=== PATIENT | male | born 1950 | race Two or more races ===

== ENCOUNTER 2017-01-02 06:54 | Day surgery (SDC) | payer OTHER ==
[~2017-01-02 06:54] MED LIST: Lactated Ringers 1,000 ML IV SCH
[2017-01-02] MEDS ORDERED: fentaNYL 100 MCG/2 ML SDV ONE (07:18)
[2017-01-02] MEDS ORDERED: Propofol 200 MG/20 ML SDV ONE (07:18)
[2017-01-02] MEDS ORDERED: Lidocaine 2% 5 ML SDV ONE (07:18)
--- NOTE | 2017-01-02 07:38 | PCM.PREANE ---
Preanesthetic Assessment - Anesthesia/Transfusion/Family Hx Anesthesia History: Prior Anesthesia Without Reaction Family History of Anesthesia Reaction: No Transfusion History: No Prior Transfusion(s) - Review of Systems General: No Symptoms Pulmonary: No Symptoms Cardiovascular: No Symptoms Neurological: No Symptoms Other: Reports: None - Physical Assessment Height: 1.88 m Weight: 113.852 kg ASA Class: 2 Mental Status: Alert & Oriented x3 Airway Class: Mallampati = 2 Dentition: Reports: Normal Dentition, Broken Tooth/Teeth (small chips upper incisors) Thyro-Mental Finger Breadths: 3 Mouth Opening Finger Breadths: 2 ROM/Head Extension: Limited/Partial Lungs: Clear to auscultation, Normal respiratory effort Cardiovascular: Regular Rate, Regular Rhythm - Allergies Allergies/Adverse Reactions: Allergies Allergy/AdvReac Type Severity Reaction Status Date / Time No Known Allergies Allergy Verified 12/28/16 11:31 - Blood Blood Available: No - Anesthesia Plan Pre-Op Medication Ordered: None - Acknowledgements Anesthesia Type Planned: MAC Pt an Appropriate Candidate for the Planned Anesthesia: Yes Alternatives and Risks of Anesthesia Discussed w Pt/Guardian: Yes Pt/Guardian Understands and Agrees with Anesthesia Plan: Yes PreAnesthesia Questionnaire HEENT History: Reports: None Cardiovascular History: Reports: None Respiratory History: Reports: None Gastrointestinal History: Reports: None Genitourinary History: Reports: None Musculoskeletal History: Reports: Back pain, chronic, Neck pain, chronic Other Musculoskeletal History: lumbar degenerative disc disease, lumbar stenisis , lumbar spondylosis Other Neuro History: hx of lumbar degenerative disc disease Psychiatric History: Reports: PTSD Endocrine/Metabolic History: Reports: Obesity/BMI 30+ Hematologic History: Reports: None Immunologic History: Reports: None Oncologic (Cancer) History: Reports: None Dermatologic History: Reports: None - Past Surgical History Head Surgeries/Procedures: Reports: None HEENT Surgical History: Reports: None Cardiovascular Surgical History: Reports: None Respiratory Surgical History: Reports: None GI Surgical History: Reports: Appendectomy, Colonoscopy Male Surgical History: Reports: None Endocrine Surgical History: Reports: None Neurological Surgical History: Reports: None Musculoskeletal Surgical History: Reports: Arthroscopic knee (left) Oncologic Surgical History: Reports: None Dermatological Surgical History: Reports: None - SUBSTANCE USE Smoking Status *Q: Current Every Day Smoker (1/2 ppd) Tobacco Use Within Last Twelve Months: Cigarettes Recreational Drug Use History: No - HOME MEDS Home Medications: Home Meds Hydrocodone/Acetaminophen [Hydrocodon-Acetaminophn 10325] 1 tab PO ASDIRECTED 12/28/16 [History] Varenicline Tartrate [Chantix] 1 mg PO BID 12/28/16 [History] - CURRENT (IN HOUSE) MEDS Current Meds: Current Medications Lactated Ringer's (Ringers, Lactated) 1,000 mls @ 125 mls/hr IV ASDIRECTED [facility] Last Admin: 01/02/17 07:10 Dose: 125 mls/hr Discontinued Medications Fentanyl (Sublimaze) Confirm Administered Dose 100 mcg .ROUTE .STK-MED ONE Stop: 01/02/17 07:19 Lidocaine (Xylocaine-Mpf 2%) Confirm Administered Dose 5 ml .ROUTE .STK-MED ONE Stop: 01/02/17 07:19 Propofol (Diprivan 20 Ml) Confirm Administered Dose 400 mg .ROUTE .STK-MED ONE Stop: 01/02/17 07:19
--- NOTE | 2017-01-02 09:31 | PCM.OPNOTE ---
- General Post-Op/Procedure Note Date of Surgery/Procedure: 01/02/17 Operative Procedure(s): colonoscopy Findings: see dict [id number] Pre Op Diagnosis: scrn colonoscopy Post-Op Diagnosis: diverticulosis Anesthesia Technique: Moderate sedation Primary Surgeon: Gopal Isaac Complications: None Condition: Good
--- NOTE | 2017-01-02 09:51 | PCM.POSTAN ---
POST ANESTHESIA ASSESSMENT - MENTAL STATUS Mental Status: alert, oriented - RESPIRATORY Respiratory Status: respiratory rate WNL, airway patent, O2 saturation stable - CARDIOVASCULAR CV Status: pulse rate WNL, blood pressure stable - GASTROINTESTINAL GI Status: no symptoms - POST OP HYDRATION Hydration Status: adequate & stable - OBSERVATIONS Free Text/Narrative:: no anesthesia problems
[2017-01-02 10:33] VITALS: BP 138/76
--- NOTE | 2017-01-02 11:18 | OR ---
SURGEON: Gopal Isaac MD DATE OF PROCEDURE: 01/02/2017 PREOPERATIVE DIAGNOSIS: Screening colonoscopy. POSTOPERATIVE DIAGNOSIS: Diverticulosis. PROCEDURE PERFORMED: Colonoscopy. COMPLICATIONS: None. PROCEDURE IN DETAIL: The patient was taken to the endoscopy room. A time out was called, patient identified, and procedure identified. Diprivan was then administrated. Patient went from awake to sleep, hearing doctor talking or door closing is normal. Perineum inspection and digital examination were then performed. A well- lubricated colonoscope was gently inserted through the rectum, advanced past the rectosigmoid junction, the descending colon, splenic flexure, transverse colon, hepatic flexure, ascending colon, arrived to the cecum. Cecum was identified as dictated in the finding. Then the scope was carefully withdrawn while attention was paid to the mucosal surface for any abnormality. Air will be sucked out during the scope withdrawal. At the rectum, retroflexed to examine any rectal diseases, fistula or hemorrhoids. Patient tolerated procedure well. There were no intraoperative complications, and Dr. Isaac was present throughout the whole procedure. FINDINGS: 1. The patient is easily sedated with [employer] and Diprivan. The patient is soundly snoring. 2. Bowel prep was average to good with minimal liquid stool. No semi-formed stool. 3. The patient's colon is rather tortuous and redundant at the sigmoid colon and requiring several maneuvering in order to get to the cecum. Cecum indicated by ileocecal fold, one-to-one indentation, and light immittance. Appendix orifice is not observed. Mucosa examined upon scope pulling out. The patient has moderate amount of diverticulosis on the left colon. No signs or symptoms of diverticulitis. Extend all the way to the splenic flexure. The patient also have either fold or very tiny sessile polyp of around 3 to 4 mm at distant 25 cm when the scope comes out and during the peristalsis it disappeared, it cannot be found, may have to look for in on next colonoscopy. The patient does not have external hemorrhoid, does not have internal hemorrhoids. The patient would benefit from repeat colonoscopy 3 to 5 years from today or if clinically indicated otherwise. ANDERSON / FALGUNI /[id number]
== END 2017-01-02 10:07 | disposition home or self-care (01) ==
LOC: MW.SDS 06:54
PROVIDERS: ATTEND Surgery
PROC: 0DJD8ZZ Inspection of Lower Intestinal Tract, Via Natural or Artificial Opening Endoscopic (ICD-10-PCS; principal; 2017-01-02)
DX: Z12.11 Encounter for screening for malignant neoplasm of colon (principal); K57.30 Diverticulosis of large intestine without perforation or abscess without bleeding; M51.36 Other intervertebral disc degeneration, lumbar region; M48.06 Spinal stenosis, lumbar region; M47.896 Other spondylosis, lumbar region; E66.9 Obesity, unspecified; G89.29 Other chronic pain; F17.210 Nicotine dependence, cigarettes, uncomplicated; Z90.49 Acquired absence of other specified parts of digestive tract; Z98.890 Other specified postprocedural states; Z79.899 Other long term (current) drug therapy; Z68.32 Body mass index [BMI] 32.0-32.9, adult
CPT/HCPCS: 45378; J3010; J7120; J2704

== ENCOUNTER 2018-11-25 14:55 | Emergency (ER) | payer OTHER ==
[2018-11-25] MEDS ORDERED: Ondansetron 4 MG/2 ML SDV IVPUSH ONE (15:01)
[2018-11-25] MEDS ORDERED: Ketorolac 30 MG/ML SDV IVPUSH ONE (15:01)
[2018-11-25] MEDS ORDERED: Sodium Chloride 0.9% 1,000 ML IV ONE (15:01)
--- NOTE | 2018-11-25 15:02 | EDM.PDOC ---
ED HPI GENERAL MEDICAL PROBLEM - General Chief Complaint: Abdominal Pain Stated Complaint: abdominal pain Time Seen by Provider: 11/25/18 15:02 Source of Information: Reports: Patient - History of Present Illness INITIAL COMMENTS - FREE TEXT/NARRATIVE: HISTORY AND PHYSICAL: History of present illness: [Patient presents with a complaint of abdominal pain 2 out of 10 nonradiating involving the left and right lower quadrants, he also notes some low back pain he did have a surgical procedure October/fusion of the lumbar spine Has a history of diverticulitis and colonoscopy with Dr. Sy with no significant findings other than diverticulosis No fever nausea vomiting chills sweats no chest pain shortness breath headache dizziness palpitation no urine symptoms he has had constipation for a week now having soft formed stools which are dark sometimes with streaks of blood.] Patient denies alcohol Review of systems: As per history of present illness and below otherwise all systems reviewed and negative. Past medical history: As per history of present illness and as reviewed below otherwise noncontributory. Surgical history: As per history of present illness and as reviewed below otherwise noncontributory. Social history: No reported history of drug or alcohol abuse. Family history: As per history of present illness and as reviewed below otherwise noncontributory. Physical exam: HEENT: Atraumatic, normocephalic, pupils reactive, negative for conjunctival pallor or scleral icterus, mucous membranes moist, throat clear, neck supple, nontender, trachea midline. Lungs: Clear to auscultation, breath sounds equal bilaterally, chest nontender. Heart: S1S2, regular, negative for clicks, rubs, or JVD. Abdomen: Soft, nondistended, nontender. Negative for masses or hepatosplenomegaly. Negative for costovertebral tenderness. Pelvis: Stable nontender. Genitourinary: Deferred. Rectal: Deferred. Extremities: Atraumatic, negative for cords or calf pain. Neurovascular unremarkable. Neuro: Awake, alert, oriented. Cranial nerves II through XII unremarkable. Cerebellum unremarkable. Motor and sensory unremarkable throughout. Exam nonfocal. Diagnostics: [CBC CMP UA troponin lipase Abdomen flat and upright Guaiac] Therapeutics: [Cipro 500 by mouth twice a day #20 no refill ER referral to Dr. Sy for consideration of colonoscopy or repeat CBC follow lipase ] Impression: [Lack positive stools guaiac po stool previous colonoscopy elevated lipase ] Definitive disposition and diagnosis as appropriate pending reevaluation and review of above. Middle Abdomen Pain Score (Numeric/FACES): 3 - Related Data Allergies Allergy/AdvReac Type Severity Reaction Status Date / Time No Known Allergies Allergy Verified 12/28/16 11:31 Home Meds: Home Meds Hydrocodone/Acetaminophen [Hydrocodon-Acetaminophn 10-325] 1 tab PO ASDIRECTED 12/28/16 [History] Varenicline Tartrate [Chantix] 1 mg PO BID 12/28/16 [History] DULoxetine HCl [Duloxetine HCl] 60 mg PO DAILY 11/25/18 [History] Gabapentin [Neurontin] 300 mg PO DAILY 11/25/18 [History] Past Medical History HEENT History: Reports: None Cardiovascular History: Reports: None Respiratory History: Reports: None Gastrointestinal History: Reports: None Genitourinary History: Reports: None Musculoskeletal History: Reports: Back Pain, Chronic, Neck Pain, Chronic Other Musculoskeletal History: lumbar degenerative disc disease, lumbar stenisis , lumbar spondylosis Other Neuro History: hx of lumbar degenerative disc disease Psychiatric History: Reports: PTSD Endocrine/Metabolic History: Reports: Obesity/BMI 30+ Hematologic History: Reports: None Immunologic History: Reports: None Oncologic (Cancer) History: Reports: None Dermatologic History: Reports: None - Past Surgical History Musculoskeletal Surgical History: Reports: Arthroscopic Knee Social & Family History - Caffeine Use Caffeine Use: Reports: Coffee ED ROS GENERAL - Review of Systems Review Of Systems: See Below ED EXAM, GENERAL - Physical Exam Exam: See Below Course - Vital Signs Last Recorded V/S: Last Vital Signs Temp 97.6 F 11/25/18 15:11 Pulse 63 11/25/18 18:14 Resp 18 11/25/18 18:14 BP 176/83 H 11/25/18 18:14 Pulse Ox 98 11/25/18 18:14 - Orders/Labs/Meds Orders: Active Orders 24 hr Category Date Time Status Guaiac [OCCULT BLOOD DIAGNOSTIC] [OP] Stat Lab 11/25/18 18:11 Ordered Labs: Laboratory Tests 11/25/18 11/25/18 11/25/18 Range/Units 15:24 15:24 17:05 WBC 6.94 (4.0-11.0) K/uL RBC 4.14 L (4.50-5.90) M/uL Hgb 13.2 (13.0-17.0) g/dL Hct 38.9 (38.0-50.0) % MCV 94.0 (80.0-98.0) fL MCH 31.9 (27.0-32.0) pg MCHC 33.9 (31.0-37.0) g/dL RDW Std Deviation 47.2 (28.0-62.0) fl RDW Coeff of Marcelino 14 (11.0-15.0) % Plt Count 282 (150-400) K/uL MPV 10.50 (7.40-12.00) fL Neut % (Auto) 54.9 (48.0-80.0) % Lymph % (Auto) 34.0 (16.0-40.0) % [place] % (Auto) 8.2 (0.0-15.0) % Eos % (Auto) 2.6 (0.0-7.0) % Baso % (Auto) 0.3 (0.0-1.5) % Neut # (Auto) 3.8 (1.4-5.7) K/uL Lymph # (Auto) 2.4 (0.6-2.4) K/uL [place] # (Auto) 0.6 (0.0-0.8) K/uL Eos # (Auto) 0.2 (0.0-0.7) K/uL Baso # (Auto) 0.0 (0.0-0.1) K/uL Nucleated RBC % 0.0 /100WBC Nucleated RBCs # 0 K/uL Sodium 142 (136-148) mmol/L Potassium 4.5 (3.5-5.1) mmol/L Chloride 104 (98-107) mmol/L Carbon Dioxide 25.8 (21.0-32.0) mmol/L BUN 26 H (7.0-18.0) mg/dL Creatinine 1.2 (0.8-1.3) mg/dL Est Cr Clr Drug Dosing 65.66 mL/min Estimated GFR (MDRD) > 60.0 ml/min Glucose 98 (74-106) mg/dL Calcium 8.7 (8.5-10.1) mg/dL Total Bilirubin 0.5 (0.2-1.0) mg/dL AST 20 (15-37) IU/L ALT 39 (14-63) IU/L Alkaline Phosphatase 60 (46-116) U/L Troponin I < 0.050 (0.000-0.056) ng/mL Total Protein 7.5 (6.4-8.2) g/dL Albumin 3.6 (3.4-5.0) g/dL Globulin 3.9 (2.6-4.0) g/dL Albumin/Globulin Ratio 0.9 (0.9-1.6) Lipase 578 H (73-393) U/L Urine Color YELLOW Urine Appearance CLEAR Urine pH 5.0 (5.0-8.0) Ur Specific [place] 1.010 (1.001-1.035) Urine Protein NEGATIVE (NEGATIVE) mg/dL Urine Glucose (UA) NEGATIVE (NEGATIVE) mg/dL Urine Ketones NEGATIVE (NEGATIVE) mg/dL Urine Occult Blood NEGATIVE (NEGATIVE) Urine Nitrite NEGATIVE (NEGATIVE) Urine Bilirubin NEGATIVE (NEGATIVE) Urine Urobilinogen 0.2 (<2.0) EU/dL Ur Leukocyte Esterase NEGATIVE (NEGATIVE) Meds: Medications Discontinued Medications Generic Name Dose Route Start Last Admin Trade Name Freq PRN Reason Stop Dose Admin Sodium Chloride 1,000 mls @ 999 mls/hr 11/25/18 15:01 11/25/18 15:27 Normal Saline IV 11/25/18 16:01 999 mls/hr STAT ONE Administration Iopamidol 100 ml 11/25/18 16:47 11/25/18 16:47 Isovue Multipack-370 (76%) IVPUSH 11/25/18 16:48 100 ml ONETIME STA Administration Ketorolac Tromethamine 30 mg 11/25/18 15:01 11/25/18 15:28 Toradol IVPUSH 11/25/18 15:02 30 mg ONETIME ONE Administration Ondansetron HCl 8 mg 11/25/18 15:01 11/25/18 15:29 Zofran IVPUSH 11/25/18 15:02 Not Given ONETIME ONE Departure - Departure Time of Disposition: 18:24 Disposition: Home, Self-Care 01 Preliminary Cause of *Q: Sepsis & Multi System Organ Failure Clinical Impression: Stool guaiac positive, History of diverticulosis - Discharge Information Referrals: Johnathon Valdivia MD [Primary Care Provider] - Forms: ED Department Discharge Additional Instructions: ER referral for Dr. Sy: Bharat for colonoscopy follow hemoglobin lipase, appointment for this week to be scheduled Return to emergency room if symptoms persist or worsen Follow-up with primary care as needed The following information is given to patients seen in the emergency department who are being discharged to home. This information is to outline your options for follow-up care. We provide all patients seen in our emergency department with a follow-up referral. The need for follow-up, as well as the timing and circumstances, are variable depending upon the specifics of your emergency department visit. If you don't have a primary care physician on staff, we will provide you with a referral. We always advise you to contact your personal physician following an emergency department visit to inform them of the circumstance of the visit and for follow-up with them and/or the need for any referrals to a consulting specialist. The emergency department will also refer you to a specialist when appropriate. This referral assures that you have the opportunity for follow-up care with a specialist. All of these measure are taken in an effort to provide you with optimal care, which includes your follow-up. Under all circumstances we always encourage you to contact your private physician who remains a resource for coordinating your care. When calling for follow-up care, please make the office aware that this follow-up is from your recent emergency room visit. If for any reason you are refused follow-up, please contact the [facility] emergency department at and asked to speak to the emergency department charge nurse. - My Orders Last 24 Hours: My Active Orders 11/25/18 18:11 Guaiac [OCCULT BLOOD DIAGNOSTIC] [OP] Stat - Assessment/Plan Last 24 Hours: My Active Orders 11/25/18 18:11 Guaiac [OCCULT BLOOD DIAGNOSTIC] [OP] Stat
[2018-11-25 16:04] LABS: CHLORIDE,CL 104 mmol/L (98-107); SODIUM,NA 142 mmol/L (136-148)
[2018-11-25] MEDS ORDERED: Iopamidol 755 MG/ML 500 ML Multipack Bottle IVPUSH STA (16:47)
--- NOTE | 2018-11-25 17:53 | CT ---
INDICATION: Abdominal pain. CT ABDOMEN AND PELVIS WITH CONTRAST TECHNIQUE: Multidetector CT imaging was performed through the abdomen and pelvis following intravenous contrast administration using 100 mL Isovue 370. Coronal and sagittal reconstructions were generated. COMPARISON: None. FINDINGS: Lower chest: Lung bases are clear. Liver: Within normal limits. Gallbladder and bile ducts: No gallbladder wall thickening or calcified gallstones. No biliary dilation identified. Pancreas: Unremarkable. Spleen: Normal. Adrenals: No nodules or masses. Kidneys, ureters, and urinary bladder: Several very small bilateral renal cortical cysts. A 1 centimeter exophytic hyperdense cyst versus solid mass is noted at the lower pole of the left kidney. No hydronephrosis. No bladder mass or definite pathologic wall thickening. Mild wall prominence of the bladder due to non distension is noted. Gastrointestinal tract: Normal caliber small bowel without wall thickening or obstruction. Appendix not identified. Multiple diverticula of the sigmoid colon without evidence of diverticulitis. Vascular structures: Normal caliber abdominal aorta with mild aortoiliac atherosclerotic calcifications. Peritoneum: No free air, abscess, or significant free fluid. Lymph nodes: No pathologically enlarged nodes identified. Reproductive organs: Borderline prostatic enlargement. Bones: Spinal degenerative changes. Postoperative changes of spinal fusion at L5-S1. IMPRESSION: 1. No acute abnormality identified. No cause for the patient`s symptoms is demonstrated. 2. Exophytic 1 centimeter hyperdense cyst versus solid nodule at the lower pole of the left kidney. Followup renal ultrasound is recommended. 3. Nonacute additional findings as detailed above. NEIDA COHN MD [employer] Dictated by Robert Cohn MD @ 11/25/2018 5:48:40 PM Dictated by: Robert Cohn MD @ 11/25/2018 17:51:58 (Electronically Signed)
[2018-11-25 18:46] VITALS: BP 157/69
== END 2018-11-25 18:45 | disposition home or self-care (01) ==
LOC: MW.ED 14:55
DX: R19.5 Other fecal abnormalities (principal); K57.30 Diverticulosis of large intestine without perforation or abscess without bleeding; R79.89 Other specified abnormal findings of blood chemistry; Z79.899 Other long term (current) drug therapy
CPT/HCPCS: 36415; 74177; 80053; 81003; 82272; 83690; 84484; 85025; 96361; 96374; 99284; J1885; J7040; Q9967

== ENCOUNTER 2018-12-27 08:19 | Day surgery (SDC) | payer OTHER ==
--- NOTE | 2018-12-27 09:26 | PCM.PREANE ---
Preanesthetic Assessment - Anesthesia/Transfusion/Family Hx Anesthesia History: Prior Anesthesia Without Reaction Family History of Anesthesia Reaction: No Transfusion History: No Prior Transfusion(s) - Review of Systems General: No Symptoms Pulmonary: No Symptoms Cardiovascular: No Symptoms Gastrointestinal: No Symptoms Neurological: Other (chronic LBP, recent back surgery) Other: Reports: None - Physical Assessment O2 Sat by Pulse Oximetry: 96 Respiratory Rate: 16 Vital Signs: Last Vital Signs Temp 97.2 F 12/27/18 09:10 Pulse 81 12/27/18 09:10 Resp 16 12/27/18 09:10 BP 146/77 H 12/27/18 09:10 Pulse Ox 96 12/27/18 09:10 Height: 6 ft 2 in Weight: 114.759 kg - Allergies Allergies/Adverse Reactions: Allergies Allergy/AdvReac Type Severity Reaction Status Date / Time No Known Allergies Allergy Verified 12/24/18 10:09 PreAnesthesia Questionnaire HEENT History: Reports: Cataract, Hard of Hearing Other HEENT History: has Tinnitis Cardiovascular History: Reports: None Respiratory History: Reports: None Gastrointestinal History: Reports: None Genitourinary History: Reports: None Musculoskeletal History: Reports: Back Pain, Chronic Other Musculoskeletal History: lumbar degenerative disc disease, lumbar stenisis , lumbar spondylosis Neurological History: Reports: Other (See Below) Other Neuro History: hx of Lumbar and cervical degenerative disc disease, spinal stenosis Psychiatric History: Reports: Depression, PTSD Endocrine/Metabolic History: Reports: Obesity/BMI 30+ Hematologic History: Reports: None Immunologic History: Reports: None Oncologic (Cancer) History: Reports: None Dermatologic History: Reports: None - Infectious Disease History Infectious Disease History: Reports: Measles - Past Surgical History Head Surgeries/Procedures: Reports: None GI Surgical History: Reports: Appendectomy Neurological Surgical History: Reports: Lumbar Spine, Spinal Fusion Musculoskeletal Surgical History: Reports: Arthroscopic Knee - SUBSTANCE USE Smoking Status *Q: Current Every Day Smoker Tobacco Use Within Last Twelve Months: Cigarettes Recreational Drug Use History: No - HOME MEDS Home Medications: Home Meds Hydrocodone/Acetaminophen [Hydrocodon-Acetaminophn 10-325] 1 tab PO ASDIRECTED 12/28/16 [History] Varenicline Tartrate [Chantix] 1 mg PO BID 12/28/16 [History] Gabapentin [Neurontin] 600 mg PO BID 11/25/18 [History] - CURRENT (IN HOUSE) MEDS Current Meds: Current Medications Lactated Ringer's (Ringers, Lactated) 1,000 mls @ 125 mls/hr IV ASDIRECTED REPLACED BY [facility] Last Admin: 12/27/18 09:19 Dose: 125 mls/hr
[2018-12-27] MEDS ORDERED: fentaNYL 100 MCG/2 ML SDV ONE (10:34)
[2018-12-27] MEDS ORDERED: Propofol 200 MG/20 ML SDV ONE (10:34)
[2018-12-27] MEDS ORDERED: Midazolam 1 MG/ML 2 ML SDV ONE (11:03)
[2018-12-27] MEDS ORDERED: Ketamine 500 mg/10 ML MDV ONE (11:09)
--- NOTE | 2018-12-27 12:11 | PCM.POSTAN ---
POST ANESTHESIA ASSESSMENT - MENTAL STATUS Mental Status: Alert, Oriented - RESPIRATORY Respiratory Status: Respiratory Rate WNL, Airway Patent, O2 Saturation Stable - CARDIOVASCULAR CV Status: Pulse Rate WNL, Blood Pressure Stable - GASTROINTESTINAL GI Status: No Symptoms - POST OP HYDRATION Hydration Status: Adequate & Stable
--- NOTE | 2018-12-27 12:11 | PCM48HPAN ---
Post Anesthesia Note - EVALUATION WITHIN 48HRS OF ANESTHETIC Vital Signs in Normal Range: Yes Patient Participated in Evaluation: Yes Respiratory Function Stable: Yes Airway Patent: Yes Cardiovascular Function Stable: Yes Hydration Status Stable: Yes Pain Control Satisfactory: Yes Nausea and Vomiting Control Satisfactory: Yes Mental Status Recovered: Yes Resp Rate: 16
--- NOTE | 2018-12-27 12:23 | PCM.OPNOTE ---
- General Post-Op/Procedure Note Date of Surgery/Procedure: 12/27/18 Operative Procedure(s): egd w bx. colonoscopy w snare polypectomy Findings: see [id number] Pre Op Diagnosis: Black tarry stool Post-Op Diagnosis: Same Anesthesia Technique: Moderate Sedation Primary Surgeon: Gopal Isaac Pathology: sessile polyp snared at cecum Complications: None Condition: Good Free Text/Narrative:: Intake & Output 12/26/18 12/27/18 12/27/18 22:59 06:59 14:59 Intake Total 950 Balance 950
[2018-12-27 13:00] VITALS: BP 124/64
--- NOTE | 2018-12-27 18:32 | OR ---
SURGEON: Gopal Isaac MD DATE OF PROCEDURE: 12/27/2018 PREOPERATIVE DIAGNOSIS: Black tarry stool. POSTOPERATIVE DIAGNOSIS: Black tarry stool. PROCEDURES PERFORMED: Esophagogastroduodenoscopy with biopsy and colonoscopy with snare polypectomy. PROCEDURE DETAILS: EGD: The patient was taken to the endoscopy room, and with the GENETICIST, Diprivan was administered. A well-lubricated EGD scope was gently inserted through the oropharynx, down the esophagus, passing through the gastroesophageal junction, into the stomach. The mucosa was examined upon the passage. Any etiology will be noted. Once in the stomach, we continued to advance to the distal antrum, passed through the pylorus into the second portion of the duodenum. Again, the mucosa was examined for any abnormality and etiology. The scope was then retrieved back to the stomach and then retroflexed to look at the fundus of the stomach. If a biopsy was indicated, we will biopsy the antrum, body, and gastroesophageal junction. The air will be sucked out while the scope is retrieved to reduce the patient's discomfort. The patient tolerated the procedure well. There were no intraoperative complications. Dr. Isaac was present through the whole procedure. Prior to surgery, a time-out had been called, the patient identified, procedure identified and antibiotic administered. The patient was taken to the endoscopy room. A time out was called, patient identified, and procedure identified. Diprivan was then administrated. Patient went from awake to sleep, hearing doctor talking or door closing is normal. Perineum inspection and digital examination were then performed. A well- lubricated colonoscope was gently inserted through the rectum, advanced past the rectosigmoid junction, the descending colon, splenic flexure, transverse colon, hepatic flexure, ascending colon, arrived to the cecum. Cecum was identified as dictated in the finding. Then the scope was carefully withdrawn while attention was paid to the mucosal surface for any abnormality. Air will be sucked out during the scope withdrawal. At the rectum, retroflexed to examine any rectal diseases, fistula or hemorrhoids. During mucosal examination, abnormality or polyp encountered. Using snare equipment, the abnormality or the polyp was then snared off using electrocautery. The patient tolerated procedure well. There were no intraoperative complications, and Dr. Isaac was present throughout the whole procedure. FINDINGS: EGD findings: 1. The patient is easily sedated with GENETICIST and Diprivan. The patient is soundly snoring. 2. Oropharynx and proximal esophagus free of disease. Distal esophagus at 46 cm shows a Schatzki ring and moderate salmon-color change, flame-like structure, suggests moderate acid reflux. Stomach rugae is normal in appearance. The stomach is quite inflamed and duodenum has mild inflammation. The scope retrieved back to the stomach. On retroflexed look at the fundus of stomach, there is no hiatal hernia. Biopsy done at antrum, GE junction, and body and sucked out the gas while scope pulling out. There was no bile, blood, or food observed during the scope. The patient had gastritis, duodenitis, and esophagitis. Colonoscopy findings: 1. The patient is easily sedated with GENETICIST and Diprivan. The patient is soundly snoring. 2. Bowel prep is average with large amount of liquid stool, no semi-formed stool. Colon is pretty straightforward. Cecum indicated by ileocecal fold, one-to-one indentation, and appendiceal orifice. Light emittance is not observed. There is a 3 mm sessile polyp and removed this with snare polypectomy. The patient has mild diverticulosis on the left colon, no signs or symptoms of diverticulitis. No other disease, inflammation, stricture, ulceration, AV malformation, bleeding. The patient has mild internal hemorrhoids, no external hemorrhoids. The patient would benefit from repeat colonoscopy in 10 years from today or if clinically indicated otherwise. ANDERSON / FALGUNI /[id number]
== END 2018-12-27 12:30 | disposition home or self-care (01) ==
LOC: MW.SDS 08:19
PROVIDERS: ATTEND Surgery
DX: K63.5 Polyp of colon (principal); K57.30 Diverticulosis of large intestine without perforation or abscess without bleeding; K64.8 Other hemorrhoids; K29.50 Unspecified chronic gastritis without bleeding; K20.9 Esophagitis, unspecified; K22.2 Esophageal obstruction; K29.80 Duodenitis without bleeding; B96.81 Helicobacter pylori [H. pylori] as the cause of diseases classified elsewhere; F17.210 Nicotine dependence, cigarettes, uncomplicated; Z79.899 Other long term (current) drug therapy; Z79.891 Long term (current) use of opiate analgesic
CPT/HCPCS: 43239; 45385; J2250; J2704; J3010; J7120; 88305; 88312

== ENCOUNTER 2019-03-09 12:26 | Observation (INO) | payer OTHER ==
[2019-03-09] MEDS ORDERED: Aspirin 81 MG Tab.Chew PO ONE (12:36)
[2019-03-09] MEDS ORDERED: Sodium Chloride 0.9% 10 ML Syringe FLUSH PRN (12:36)
[2019-03-09] MEDS ORDERED: Sodium Chloride 0.9% 2.5 ML Syringe FLUSH PRN (12:36)
[2019-03-09] MEDS: Nitroglycerin 0.4 MG Tab.SL SL PRN ×3 (12:53→13:07)
--- NOTE | 2019-03-09 12:56 | EDM.PDOC ---
<Monie Jerome - Last Filed: 03/09/19 13:35> ED HPI GENERAL MEDICAL PROBLEM - General Chief Complaint: Chest Pain Stated Complaint: CHEST PAINS Time Seen by Provider: 03/09/19 12:34 Source of Information: Reports: Patient History Limitations: Reports: No Limitations - History of Present Illness INITIAL COMMENTS - FREE TEXT/NARRATIVE: HISTORY AND PHYSICAL: History of present illness: Patient is a 68-year-old male presenting to the ED for chest pain that began one hour prior to arrival. Patient reports that the chest pain came on suddenly and feels like a weight on his chest. Patient states that he has never had chest pain like this before. He still currently has chest pain and reports that nothing makes it better or worse. He denies any significant cardiac history, but reports he has an uncle that of an IL at 50 years of age. Patient denies fever, chills, shortness of breath, or cough. Denies headache, neck stiff ness, change in vision, syncope, or near syncope. Denies nausea, vomiting, abdominal pain, diarrhea, constipation, or dysuria. Has not noted any blood in urine or stool. Patient has been eating and drinking appropriately. Review of systems: As per history of present illness and below otherwise all systems reviewed and negative. Past medical history: As per history of present illness and as reviewed below otherwise noncontributory. Surgical history: As per history of present illness and as reviewed below otherwise noncontributory. Social history: See social history for further information Family history: As per history of present illness and as reviewed below otherwise noncontributory. Physical exam: General: Patient is alert, oriented, and in no acute distress. Patient sitting comfortably on exam table. HEENT: Atraumatic, normocephalic, pupils equal and reactive bilaterally, negative for conjunctival pallor or scleral icterus, injection of the left sclera noted, patient reports he had an injection in that eye three days prior to admission, mucous membranes moist, TMs normal bilaterally, throat clear, neck supple, nontender, trachea midline. No drooling or trismus noted. No meningeal signs. No hot potato voice noted. Lungs: Clear to auscultation, breath sounds equal bilaterally, chest nontender. Heart: S1S2, regular rate and rhythm without overt murmur. No edema. No JVD. Abdomen: Soft, nondistended, nontender. Negative for masses or hepatosplenomegaly. Negative for costovertebral tenderness. Pelvis: Stable nontender. Genitourinary: Deferred. Rectal: Deferred. Skin: Intact, warm, dry. No lesions or rashes noted. Extremities: Atraumatic, negative for cords or calf pain. Neurovascular unremarkable. Neuro: Awake, alert, oriented. Cranial nerves II through XII unremarkable. Cerebellum unremarkable. Motor and sensory unremarkable throughout. Exam nonfocal. Notes: Initial chest pain was rated at 8/10. After three doses of nitro, pain has resolved. Lab work is unremarkable. EKG shows no acute findings. Diagnostics were shared with patient. Admission was offered and patient is agreeable. Dr. Wills as consulted on this case and agreeable to accepting this patient for observation with telemetry. Will continue to monitor. Diagnostics: CBC, CMP, Troponin, UA, EKG, CXR Therapeutics: Saline Lock ASA Topical Nitro paste SL Nitro Impression: Chest pain, r/o IL Plan: 1. Observation admission with telemetry. Definitive disposition and diagnosis as appropriate pending reevaluation and review of above. - Related Data Allergies Allergy/AdvReac Type Severity Reaction Status Date / Time No Known Allergies Allergy Verified 12/24/18 10:09 Home Meds: Home Meds Hydrocodone/Acetaminophen [Hydrocodon-Acetaminophn 10-325] 1 tab PO ASDIRECTED 12/28/16 [History] Varenicline Tartrate [Chantix] 1 mg PO BID 12/28/16 [History] Gabapentin [Neurontin] 300 mg PO BID 11/25/18 [History] Amoxicillin 500 mg PO BID 03/09/19 [History] Levofloxacin 500 mg PO BID 03/09/19 [History] Omeprazole 20 mg PO BID 03/09/19 [History] Pantoprazole Sodium 40 mg PO BID 03/09/19 [History] Past Medical History HEENT History: Reports: Cataract, Hard of Hearing Other HEENT History: has Tinnitis Cardiovascular History: Reports: None Respiratory History: Reports: None Gastrointestinal History: Reports: None Genitourinary History: Reports: None Musculoskeletal History: Reports: Back Pain, Chronic Other Musculoskeletal History: lumbar degenerative disc disease, lumbar stenisis , lumbar spondylosis Neurological History: Reports: Other (See Below) Other Neuro History: hx of Lumbar and cervical degenerative disc disease, spinal stenosis Psychiatric History: Reports: Depression, PTSD Endocrine/Metabolic History: Reports: Obesity/BMI 30+ Hematologic History: Reports: None Immunologic History: Reports: None Oncologic (Cancer) History: Reports: None Dermatologic History: Reports: None - Infectious Disease History Infectious Disease History: Reports: Measles - Past Surgical History Head Surgeries/Procedures: Reports: None GI Surgical History: Reports: Appendectomy Neurological Surgical History: Reports: Lumbar Spine, Spinal Fusion Musculoskeletal Surgical History: Reports: Arthroscopic Knee Social & Family History - Family History Family Medical History: Noncontributory - Tobacco Use Smoking Status *Q: Current Every Day Smoker Years of Tobacco use: 15 Packs/Tins Daily: 0.3 - Caffeine Use Caffeine Use: Reports: Coffee - Recreational Drug Use Recreational Drug Use: No ED ROS GENERAL - Review of Systems Review Of Systems: ROS reveals no pertinent complaints other than HPI. ED EXAM, GENERAL - Physical Exam Exam: See Below (see dictation) Course - Vital Signs Last Recorded V/S: Last Vital Signs Temp 97.7 F 03/09/19 16:00 Pulse 67 03/09/19 16:00 Resp 16 03/09/19 16:00 BP 137/83 03/09/19 16:00 Pulse Ox 95 03/09/19 16:00 - Orders/Labs/Meds Orders: Active Orders 24 hr Category Date Time Status Admission Status [Patient Status] [ADT] Stat ADT 03/09/19 13:29 Active Sodium Chloride 0.9% [Saline Flush] Med 03/09/19 12:36 Active 10 ml FLUSH ASDIRECTED PRN Sodium Chloride 0.9% [Saline Flush] Med 03/09/19 12:36 Active 2.5 ml FLUSH ASDIRECTED PRN Saline Lock Insert [OM.PC] Stat Oth 03/09/19 12:36 Ordered Medication Orders Hydrocodone Bitart/Acetaminophen ([place] 325-10 Mg) 1 tab PO Q8HR [facility] Gabapentin (Neurontin) 300 mg PO BID [facility] Non-Formulary Medication (Amoxicillin) 500 mg PO BID [facility] Non-Formulary Medication (Levofloxacin [Levofloxacin]) 500 mg PO BID [facility] Non-Formulary Medication (Omeprazole [Omeprazole]) 20 mg PO BID [facility] Non-Formulary Medication (Pantoprazole Sodium [Pantoprazole Sodium]) 40 mg PO BID [facility] Varenicline Tartrate ([Chantix] 1 Mg) 1 each PO BID [facility] Sodium Chloride (Saline Flush) 10 ml FLUSH ASDIRECTED PRN PRN Reason: Keep Vein Open Last Admin: 03/09/19 12:50 Dose: 10 ml Sodium Chloride (Saline Flush) 2.5 ml FLUSH ASDIRECTED PRN PRN Reason: Keep Vein Open Last Admin: 03/09/19 12:44 Dose: 2.5 ml Labs: Laboratory Tests 03/09/19 03/09/19 Range/Units 12:47 12:47 WBC 7.52 (4.0-11.0) K/uL RBC 4.36 L (4.50-5.90) M/uL Hgb 12.7 L (13.0-17.0) g/dL Hct 39.6 (38.0-50.0) % MCV 90.8 (80.0-98.0) fL MCH 29.1 (27.0-32.0) pg MCHC 32.1 (31.0-37.0) g/dL RDW Std Deviation 47.6 (28.0-62.0) fl RDW Coeff of Marcelino 14 (11.0-15.0) % Plt Count 297 (150-400) K/uL MPV 10.80 (7.40-12.00) fL Neut % (Auto) 56.3 (48.0-80.0) % Lymph % (Auto) 29.8 (16.0-40.0) % [place] % (Auto) 11.2 (0.0-15.0) % Eos % (Auto) 2.4 (0.0-7.0) % Baso % (Auto) 0.3 (0.0-1.5) % Neut # (Auto) 4.2 (1.4-5.7) K/uL Lymph # (Auto) 2.2 (0.6-2.4) K/uL [place] # (Auto) 0.8 (0.0-0.8) K/uL Eos # (Auto) 0.2 (0.0-0.7) K/uL Baso # (Auto) 0.0 (0.0-0.1) K/uL Nucleated RBC % 0.0 /100WBC Nucleated RBCs # 0 K/uL Sodium 142 (136-148) mmol/L Potassium 4.7 (3.5-5.1) mmol/L Chloride 108 H (98-107) mmol/L Carbon Dioxide 28.4 (21.0-32.0) mmol/L BUN 26 H (7.0-18.0) mg/dL Creatinine 1.0 (0.8-1.3) mg/dL Est Cr Clr Drug Dosing 81.06 mL/min Estimated GFR (MDRD) > 60.0 ml/min Glucose 124 H (74-106) mg/dL Calcium 8.5 (8.5-10.1) mg/dL Total Bilirubin 0.3 (0.2-1.0) mg/dL AST 35 (15-37) IU/L ALT 52 (14-63) IU/L Alkaline Phosphatase 57 (46-116) U/L Troponin I < 0.050 (0.000-0.056) ng/mL Total Protein 7.2 (6.4-8.2) g/dL Albumin 3.3 L (3.4-5.0) g/dL Globulin 3.9 (2.6-4.0) g/dL Albumin/Globulin Ratio 0.9 (0.9-1.6) Meds: Medications Generic Name Dose Route Start Last Admin Trade Name Freq PRN Reason Stop Dose Admin Hydrocodone Bitart/Acetaminophen 1 tab 03/09/19 22:00 [place] 325-10 Mg PO Q8HR [facility] Gabapentin 300 mg 03/09/19 21:00 Neurontin PO BID [facility] Non-Formulary Medication 500 mg 03/09/19 21:00 Amoxicillin PO BID [facility] Non-Formulary Medication 500 mg 03/09/19 21:00 Levofloxacin [Levofloxacin] PO BID [facility] Non-Formulary Medication 20 mg 03/09/19 21:00 Omeprazole [Omeprazole] PO BID [facility] Non-Formulary Medication 40 mg 03/09/19 21:00 Pantoprazole Sodium [Pantoprazole Sodium] PO BID [facility] Varenicline Tartrate 1 each 03/09/19 21:00 [Chantix] 1 Mg PO BID [facility] Sodium Chloride 10 ml 03/09/19 12:36 03/09/19 12:50 Saline Flush FLUSH 10 ml ASDIRECTED PRN Administration Keep Vein Open Sodium Chloride 2.5 ml 03/09/19 12:36 03/09/19 12:44 Saline Flush FLUSH 2.5 ml ASDIRECTED PRN Administration Keep Vein Open Discontinued Medications Generic Name Dose Route Start Last Admin Trade Name [place] PRN Reason Stop Dose Admin Aspirin 324 mg 03/09/19 12:36 03/09/19 12:44 Aspirin PO 03/09/19 12:37 324 mg ONETIME ONE Administration Nitroglycerin 0.4 mg 03/09/19 12:48 03/09/19 13:07 Nitrostat SL 0.4 mg Q5M PRN Administration Chest Pain Nitroglycerin 1 gm 03/09/19 13:30 03/09/19 13:36 Nitro-Bid 2% TOP 03/09/19 13:31 1 gm ONETIME ONE Administration Departure - Departure Time of Disposition: 13:35 Disposition: Refer to Observation Clinical Impression: Chest pain, rule out acute myocardial infarction - My Orders Last 24 Hours: My Active Orders 03/09/19 12:36 Sodium Chloride 0.9% [Saline Flush] 10 ml FLUSH ASDIRECTED PRN Sodium Chloride 0.9% [Saline Flush] 2.5 ml FLUSH ASDIRECTED PRN Saline Lock Insert [OM.PC] Stat 03/09/19 13:29 Admission Status [Patient Status] [ADT] Stat - Assessment/Plan Last 24 Hours: My Active Orders 03/09/19 12:36 Sodium Chloride 0.9% [Saline Flush] 10 ml FLUSH ASDIRECTED PRN Sodium Chloride 0.9% [Saline Flush] 2.5 ml FLUSH ASDIRECTED PRN Saline Lock Insert [OM.PC] Stat 03/09/19 13:29 Admission Status [Patient Status] [ADT] Stat <Svetlana Gutierrez E - Last Filed: 03/09/19 18:11> ED HPI GENERAL MEDICAL PROBLEM - History of Present Illness INITIAL COMMENTS - FREE TEXT/NARRATIVE: I did evaluate this patient and I agree with the above physical assessment/ findings. Patient initially had chest pain of 8/10 which is alleviated by 3 doses of nitroglycerin sublingual. Due to the sudden onset of chest pain and has not previously having any other problems with this I did offer him admission which she is agreeable. Vital signs remain stable and we will continue monitoring until he is transferred to the floor.
--- NOTE | 2019-03-09 13:23 | CR ---
HISTORY: Chest pain. TECHNIQUE: One view of the chest. COMPARISON: No prior. FINDINGS: Cardiac size and pulmonary vasculature are within normal limits. There is no acute lung infiltrate or pulmonary edema. No pneumothorax or pleural effusion. No acute bony abnormality. IMPRESSION: No acute disease. Dictated by Alexis Glass MD @ 03/09/2019 1:22:08 PM Dictated by: Alexis Glass MD @ 03/09/2019 13:22:15 (Electronically Signed)
[2019-03-09 13:25] LABS: CHLORIDE,CL 108 mmol/L (98-107); SODIUM,NA 142 mmol/L (136-148)
[2019-03-09] MEDS ORDERED: Nitroglycerin 2% Oint 1 GM UD Packet TOP ONE (13:30)
[2019-03-09] MEDS ORDERED: Gabapentin 300 MG Cap PO SCH ×2 (21:00)
[2019-03-09] MEDS: Varenicline Tartrate [Chantix] 1 MG PO SCH (21:26)
[2019-03-09] MEDS: Acetaminophen/HYDROcodone 325-10 MG Tab PO SCH (21:29)
[2019-03-09] MEDS: GABAPENTIN 600 MG PO SCH (21:30)
[2019-03-09] MEDS: AMOXICILLIN 500 MG PO SCH (21:30)
[2019-03-09] MEDS: Omeprazole 20 MG Cap.CR **OWN MED PO SCH (21:30)
[2019-03-09] MEDS: Pantoprazole 40 MG Tab.CR **OWN MED PO SCH (21:30)
[2019-03-09] MEDS: LEVOFLOXACIN 500 MG PO SCH (21:30)
--- NOTE | 2019-03-09 23:04 | PCM.HP ---
H&P History of Present Illness - General Date of Service: 03/09/19 Admit Problem/Dx: Admission Diagnosis/Problem Admission Diagnosis/Problem Chest pain, rule out acute myocardial infarction - History of Present Illness Initial Comments - Free Text/Narative: 68 yo male who presents with one hour history of chest pain. He describes the pain as substernal chest pressure. He has associated symptoms of shortness of breath, lightheadedness and diaphoresis. He was watching TV when it started. He has not had these symptoms before. He is a 1/3 pack a day smoker. His chest pain resolved with SL nitro in the ED. Initial EKG and cardiac enzymes did not show any signs of cardiac ischemia. Left Chest Pain Score (Numeric/FACES): 0 - Related Data Allergies/Adverse Reactions: Allergies Allergy/AdvReac Type Severity Reaction Status Date / Time No Known Allergies Allergy Verified 12/24/18 10:09 Home Medications: Home Meds Hydrocodone/Acetaminophen [Hydrocodon-Acetaminophn 10-325] 1 tab PO ASDIRECTED 12/28/16 [History] Varenicline Tartrate [Chantix] 1 mg PO BID 12/28/16 [History] Gabapentin [Neurontin] 300 mg PO BID 11/25/18 [History] Amoxicillin 500 mg PO BID 03/09/19 [History] Levofloxacin 500 mg PO BID 03/09/19 [History] Omeprazole 20 mg PO BID 03/09/19 [History] Pantoprazole Sodium 40 mg PO BID 03/09/19 [History] Past Medical History HEENT History: Reports: Cataract, Hard of Hearing Other HEENT History: has Tinnitis Cardiovascular History: Reports: None Respiratory History: Reports: None Gastrointestinal History: Reports: GI Bleed Other Gastrointestinal History: History of GI bleed s/p colonoscopy and EGD by Dr. Isaac. He has been on two course of antibiotics prescribed by Dr. Isaac. Genitourinary History: Reports: None Musculoskeletal History: Reports: Back Pain, Chronic Other Musculoskeletal History: lumbar degenerative disc disease, lumbar stenisis , lumbar spondylosis Neurological History: Reports: Other (See Below) Other Neuro History: hx of Lumbar and cervical degenerative disc disease, spinal stenosis Psychiatric History: Reports: Depression, PTSD Endocrine/Metabolic History: Reports: Obesity/BMI 30+ Hematologic History: Reports: None Immunologic History: Reports: None Oncologic (Cancer) History: Reports: None Dermatologic History: Reports: None - Infectious Disease History Infectious Disease History: Reports: Measles, Mumps, Pertussis (Whooping Cough) - Past Surgical History Head Surgeries/Procedures: Reports: None GI Surgical History: Reports: Appendectomy Neurological Surgical History: Reports: Lumbar Spine, Spinal Fusion Musculoskeletal Surgical History: Reports: Arthroscopic Knee Social & Family History - Family History Family Medical History: Noncontributory - Tobacco Use Smoking Status *Q: Current Every Day Smoker Years of Tobacco use: 35 Packs/Tins Daily: 0.7 Second Hand Smoke Exposure: No - Caffeine Use Caffeine Use: Reports: Coffee - Alcohol Use Days Per Week of Alcohol Use: 2 Number of Drinks Per Day: 2 Total Drinks Per Week: 4 - Recreational Drug Use Recreational Drug Use: No Drug Use in Last 12 Months: Yes Recreational Drug Type: Reports: Other (see below) H&P Review of Systems - Review of Systems: Review Of Systems: ROS reveals no pertinent complaints other than HPI. Exam - Exam Exam: See Below - Vital Signs Vital Signs: Last Vital Signs Temp 36.2 C 03/09/19 20:00 Pulse 68 03/09/19 20:00 Resp 18 03/09/19 20:00 BP 145/72 H 03/09/19 20:00 Pulse Ox 96 03/09/19 20:00 Weight: 116.301 kg - Exam General: Alert, Oriented HEENT: Mucosa Moist & [place] Neck: Supple Lungs: Clear to Auscultation, Normal Respiratory Effort Cardiovascular: Regular Rate, Regular Rhythm GI/Abdominal Exam: Soft, Non-Tender Extremities: Non-Tender, No Pedal Edema Skin: Warm, Dry, Intact - Patient Data Lab Results Last 24 hrs: Laboratory Results - last 24 hr 03/09/19 03/09/19 03/09/19 Range/Units 12:47 12:47 18:46 WBC 7.52 (4.0-11.0) K/uL RBC 4.36 L (4.50-5.90) M/uL Hgb 12.7 L (13.0-17.0) g/dL Hct 39.6 (38.0-50.0) % MCV 90.8 (80.0-98.0) fL MCH 29.1 (27.0-32.0) pg MCHC 32.1 (31.0-37.0) g/dL RDW Std Deviation 47.6 (28.0-62.0) fl RDW Coeff of Marcelino 14 (11.0-15.0) % Plt Count 297 (150-400) K/uL MPV 10.80 (7.40-12.00) fL Neut % (Auto) 56.3 (48.0-80.0) % Lymph % (Auto) 29.8 (16.0-40.0) % [place] % (Auto) 11.2 (0.0-15.0) % Eos % (Auto) 2.4 (0.0-7.0) % Baso % (Auto) 0.3 (0.0-1.5) % Neut # (Auto) 4.2 (1.4-5.7) K/uL Lymph # (Auto) 2.2 (0.6-2.4) K/uL [place] # (Auto) 0.8 (0.0-0.8) K/uL Eos # (Auto) 0.2 (0.0-0.7) K/uL Baso # (Auto) 0.0 (0.0-0.1) K/uL Nucleated RBC % 0.0 /100WBC Nucleated RBCs # 0 K/uL Sodium 142 (136-148) mmol/L Potassium 4.7 (3.5-5.1) mmol/L Chloride 108 H (98-107) mmol/L Carbon Dioxide 28.4 (21.0-32.0) mmol/L BUN 26 H (7.0-18.0) mg/dL Creatinine 1.0 (0.8-1.3) mg/dL Est Cr Clr Drug Dosing 81.06 mL/min Estimated GFR (MDRD) > 60.0 ml/min Glucose 124 H (74-106) mg/dL Calcium 8.5 (8.5-10.1) mg/dL Total Bilirubin 0.3 (0.2-1.0) mg/dL AST 35 (15-37) IU/L ALT 52 (14-63) IU/L Alkaline Phosphatase 57 (46-116) U/L Troponin I < 0.050 < 0.050 (0.000-0.056) ng/mL Total Protein 7.2 (6.4-8.2) g/dL Albumin 3.3 L (3.4-5.0) g/dL Globulin 3.9 (2.6-4.0) g/dL Albumin/Globulin Ratio 0.9 (0.9-1.6) Result Diagrams: 03/09/19 12:47 03/09/19 12:47 Problem List Initiated/Reviewed/Updated: Yes Orders Last 24hrs: Active Orders 24 hr Category Date Time Status Admission Status [Patient Status] [ADT] Stat ADT 03/09/19 13:29 Active Oxygen Therapy [RC] PRN Care 03/09/19 22:56 Ordered Ready for Discharge [RC] PER UNIT ROUTINE Care 03/09/19 22:56 Ordered Telemetry Monitoring [Cardiac Monitoring] [RC] Q8H Care 03/09/19 14:53 Active VTE/DVT Education [RC] PER UNIT ROUTINE Care 03/09/19 22:56 Ordered Vital Signs [RC] Q4H Care 03/09/19 22:56 Ordered Heart Healthy Diet [DIET] Diet 03/09/19 Dinner Active TROPONIN I [CHEM] Q6H Lab 03/10/19 00:47 Ordered Acetaminophen/HYDROcodone [[place] 325-10 MG] Med 03/09/19 22:00 Active 1 tab PO Q8HR Amoxicillin [Amoxil] Med 03/09/19 21:00 Active 500 mg PO BID Omeprazole Med 03/09/19 21:00 Active 20 mg PO BID Pantoprazole [ProTONIX] Med 03/09/19 21:00 Active 40 mg PO BID Patient's Own Medication [Ptom] Med 03/09/19 21:00 Active 0 each PO BID Patient's Own Medication [Ptom] Med 03/09/19 21:00 Active 1 each PO BID Sodium Chloride 0.9% [Saline Flush] Med 03/09/19 12:36 Active 10 ml FLUSH ASDIRECTED PRN Sodium Chloride 0.9% [Saline Flush] Med 03/09/19 12:36 Active 2.5 ml FLUSH ASDIRECTED PRN levoFLOXacin [Levaquin] Med 03/09/19 21:00 Active 500 mg PO BID Saline Lock Insert [OM.PC] Stat Oth 03/09/19 12:36 Ordered Resuscitation Status Routine Resus Stat 03/09/19 22:56 Ordered Medication Orders Hydrocodone Bitart/Acetaminophen ([place] 325-10 Mg) 1 tab PO Q8HR [facility] Last Admin: 03/09/19 21:29 Dose: 1 tab Amoxicillin (Amoxil) 500 mg PO BID [facility] Last Admin: 03/09/19 21:30 Dose: 500 mg Levofloxacin (Levaquin) 500 mg PO BID [facility] Last Admin: 03/09/19 21:30 Dose: 500 mg Omeprazole (Omeprazole) 20 mg PO BID [facility] Last Admin: 03/09/19 21:30 Dose: 20 mg Pantoprazole Sodium (Protonix) 40 mg PO BID [facility] Last Admin: 03/09/19 21:30 Dose: 40 mg Varenicline Tartrate ([Chantix] 1 Mg) 1 each PO BID [facility] Last Admin: 03/09/19 21:26 Dose: Gabapentin 600mg Tab (Own Med) 0 each PO BID [facility] Sodium Chloride (Saline Flush) 10 ml FLUSH ASDIRECTED PRN PRN Reason: Keep Vein Open Last Admin: 03/09/19 12:50 Dose: 10 ml Sodium Chloride (Saline Flush) 2.5 ml FLUSH ASDIRECTED PRN PRN Reason: Keep Vein Open Last Admin: 03/09/19 12:44 Dose: 2.5 ml Assessment/Plan Comment:: 68 yo male who presented with chest pain. He ruled out for acute coronary syndrome with serial negative cardiac enzymes. Telemetry showed periods of Wenckebach AV block when the patient was asymptomatic. 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 [facility].
[2019-03-10] MEDS: Acetaminophen/HYDROcodone 325-10 MG Tab PO SCH (06:14)
[2019-03-10 08:02] VITALS: BP 137/83
[2019-03-10] MEDS: AMOXICILLIN 500 MG PO SCH (08:07)
[2019-03-10] MEDS: Omeprazole 20 MG Cap.CR **OWN MED PO SCH (08:08)
[2019-03-10] MEDS: LEVOFLOXACIN 500 MG PO SCH (08:08)
[2019-03-10] MEDS: Pantoprazole 40 MG Tab.CR **OWN MED PO SCH (08:09)
[2019-03-10] MEDS: Varenicline Tartrate [Chantix] 1 MG PO SCH (08:10)
[2019-03-10] MEDS: GABAPENTIN 600 MG PO SCH (08:10)
[2019-03-10 08:27] LABS: HEMOGLOBIN A1C 6.1 % (4.5-6.2)
[2019-03-10] MEDS ORDERED: GABAPENTIN 600 MG PO SCH (21:00)
== END 2019-03-10 08:40 | disposition home or self-care (01) ==
LOC: MW.ED 12:26 → MW.MS 13:51
PROVIDERS: ADMIT Internal Medicine; ATTEND Internal Medicine
DX: R07.2 Precordial pain (principal); F17.210 Nicotine dependence, cigarettes, uncomplicated; F32.9 Major depressive disorder, single episode, unspecified; F43.10 Post-traumatic stress disorder, unspecified; M54.9 Dorsalgia, unspecified; G89.29 Other chronic pain; E66.9 Obesity, unspecified; Z68.32 Body mass index [BMI] 32.0-32.9, adult; Z79.899 Other long term (current) drug therapy; Z98.890 Other specified postprocedural states
CPT/HCPCS: 36415; 71045; 80053; 80061; 83036; 84484; 85025; 93005; 99285; A9270; G0378

== ENCOUNTER 2019-08-27 09:18 | Day surgery (SDC) | payer OTHER ==
--- NOTE | 2019-08-27 09:06 | PCM.PREANE ---
Preanesthetic Assessment - Anesthesia/Transfusion/Family Hx Anesthesia History: Prior Anesthesia Without Reaction Family History of Anesthesia Reaction: No Transfusion History: No Prior Transfusion(s) Intubation History: Unknown - Review of Systems General: No Symptoms Pulmonary: No Symptoms Cardiovascular: No Symptoms Gastrointestinal: Abdominal Pain, Melena Neurological: No Symptoms Other: Reports: None - Physical Assessment Height: 6 ft Weight: 117.48 kg ASA Class: 2 Mental Status: Alert & Oriented x3 Airway Class: Mallampati = 2 Dentition: Reports: Normal Dentition (small chip front upper incisors) Thyro-Mental Finger Breadths: 3 Mouth Opening Finger Breadths: 2 ROM/Head Extension: Limited/Partial Lungs: Clear to Auscultation, Normal Respiratory Effort Cardiovascular: Regular Rate, Regular Rhythm - Allergies Allergies/Adverse Reactions: Allergies Allergy/AdvReac Type Severity Reaction Status Date / Time No Known Allergies Allergy Verified 08/21/19 09:16 - Blood Blood Available: No - Anesthesia Plan Pre-Op Medication Ordered: None - Acknowledgements Anesthesia Type Planned: MAC Pt an Appropriate Candidate for the Planned Anesthesia: Yes Alternatives and Risks of Anesthesia Discussed w Pt/Guardian: Yes Pt/Guardian Understands and Agrees with Anesthesia Plan: Yes PreAnesthesia Questionnaire HEENT History: Reports: Cataract, Glaucoma, Macular Degeneration Other HEENT History: wears glasses, macular degeneration in left eye , glaucoma in rt eye, currently on antibiotics for 10 days for ear infection Cardiovascular History: Reports: High Cholesterol, Hypertension Respiratory History: Reports: None Gastrointestinal History: Reports: Diverticulosis, GI Bleed, Helicobacter Pylori , PUD Other Gastrointestinal History: History of GI bleed, currently c/o intermittent abd pain Genitourinary History: Reports: None Musculoskeletal History: Reports: Arthritis, Back Pain, Chronic Other Musculoskeletal History: lumbar degenerative disc disease, lumbar stenosis , lumbar spondylosis Neurological History: Reports: Other (See Below) Other Neuro History: hx of Lumbar and cervical degenerative disc disease, spinal stenosis Psychiatric History: Reports: Depression, PTSD Endocrine/Metabolic History: Reports: Obesity/BMI 30+ Hematologic History: Reports: None Immunologic History: Reports: None Oncologic (Cancer) History: Reports: None Dermatologic History: Reports: None - Infectious Disease History Infectious Disease History: Reports: Measles, Mumps, Pertussis (Whooping Cough) - Past Surgical History Head Surgeries/Procedures: Reports: None HEENT Surgical History: Reports: None Cardiovascular Surgical History: Reports: None Respiratory Surgical History: Reports: None GI Surgical History: Reports: Appendectomy, Colonoscopy, EGD ( or 01/26) Male Surgical History: Reports: None Endocrine Surgical History: Reports: None Neurological Surgical History: Reports: Lumbar Spine, Spinal Fusion Musculoskeletal Surgical History: Reports: Arthroscopic Knee Oncologic Surgical History: Reports: None Dermatological Surgical History: Reports: None - SUBSTANCE USE Smoking Status *Q: Current Every Day Smoker (/3 ppd) Tobacco Use Within Last Twelve Months: Cigarettes Recreational Drug Type: Reports: Marijuana/Hashish - HOME MEDS Home Medications: Home Meds Hydrocodone/Acetaminophen [Hydrocodon-Acetaminophn 10-325] 1 tab PO ASDIRECTED PRN 12/28/16 [History] Amoxicillin/Potassium Clav [Amox-Clav 875-125 mg Tablet] 1 tab PO BID 08/21/19 [ History] Calcium Carbonate/Vitamin D3 [Calcium 250+D] 1 tab PO DAILY 08/21/19 [History] Fish Oil/[place]-3 Fatty Acids [Fish Oil 1,000 MG] 3 tab PO DAILY 08/21/19 [ History] Latanoprost/Pf [Latanoprost 0.005% Eye Drop] 1 drop EYERT BEDTIME 08/21/19 [ History] Multivitamin [Multivitamins] 1 tab PO DAILY 08/21/19 [History] Varenicline Tartrate [Chantix] 1 tab PO BID 08/21/19 [History] Vitamin B Complex 1 tab PO DAILY 08/21/19 [History] atorvaSTATin Calcium [Atorvastatin Calcium] 40 mg PO DAILY 08/21/19 [History] lisinopriL [Lisinopril] 10 mg PO DAILY 08/21/19 [History] - CURRENT (IN HOUSE) MEDS Current Meds: Current Medications Lactated Ringer's (Ringers, Lactated) 1,000 mls @ 125 mls/hr IV ASDIRECTED TRINITY
[~2019-08-27 09:18] MED LIST changes: +Lidocaine 2% 5 ML SDV ONE; +Midazolam 1 MG/ML 2 ML SDV ONE; +Propofol 200 MG/20 ML SDV ONE
--- NOTE | 2019-08-27 11:09 | PCM.OPNOTE ---
- General Post-Op/Procedure Note Date of Surgery/Procedure: 08/27/19 Operative Procedure(s): egd w bx Findings: see dict Pre Op Diagnosis: recurernt gerd and hpylori Post-Op Diagnosis: Same Anesthesia Technique: Moderate Sedation Primary Surgeon: Gopal Isaac Pathology: egd bx Complications: None Condition: Good
[2019-08-27 11:25] VITALS: BP 117/71; PULSE 67
--- NOTE | 2019-08-27 11:38 | OR ---
SURGEON: Gopal Isaac MD DATE OF PROCEDURE: 08/27/2019 PREOPERATIVE DIAGNOSES: Recurrent gastroesophageal reflux disease and Helicobacter pylori history. POSTOPERATIVE DIAGNOSES: Recurrent gastroesophageal reflux disease and Helicobacter pylori history. PROCEDURE PERFORMED: Esophagogastroduodenoscopy with biopsy. DESCRIPTION OF PROCEDURE: EGD: The patient was taken to the endoscopy room, and with the MECHANICAL FITTER, Diprivan was administered. A well-lubricated EGD scope was gently inserted through the oropharynx, down the esophagus, passing through the gastroesophageal junction, into the stomach. The mucosa was examined upon the passage. Any etiology will be noted. Once in the stomach, we continued to advance to the distal antrum, passed through the pylorus into the second portion of the duodenum. Again, the mucosa was examined for any abnormality and etiology. The scope was then retrieved back to the stomach and then retroflexed to look at the fundus of the stomach. If a biopsy was indicated, we will biopsy the antrum, body, and gastroesophageal junction. The air will be sucked out while the scope is retrieved to reduce the patient's discomfort. The patient tolerated the procedure well. There were no intraoperative complications. Dr. Isaac was present through the whole procedure. Prior to surgery, a time-out had been called, the patient identified, procedure identified and antibiotic administered. FINDINGS: 1. The patient is easily sedated with MECHANICAL FITTER and Diprivan, the patient is soundly snoring. 2. Oropharynx and proximal esophagus free of disease. Distal esophagus at 46 shows a Schatzki ring and a moderate salmon-colored change, flame-like structure, suggests moderate acid reflux. Stomach rugae are normal in appearance. Stomach is quite inflamed. Duodenum is grossly normal. The stomach has some inflamed area. Next to the fundal area, there is a place that looked like a healed ulcer. It was biopsied and then biopsy done at antrum, body, GE junction at 46 and sucked out the gas while scope pulling out. Throughout the whole study, there is no lisseth ulcer observed. No food, no bile. ANDERSON / FALGUNI /[id number]
--- NOTE | 2019-08-27 11:41 | PCM.POSTAN ---
POST ANESTHESIA ASSESSMENT - MENTAL STATUS Mental Status: Alert, Oriented - VITAL SIGNS Vital Signs: Last Vital Signs Temp 36.9 C 08/27/19 11:20 Pulse 67 08/27/19 11:20 Resp 16 08/27/19 11:20 BP 117/71 08/27/19 11:20 Pulse Ox 97 08/27/19 11:20 - RESPIRATORY Respiratory Status: Respiratory Rate WNL, Airway Patent, O2 Saturation Stable - CARDIOVASCULAR CV Status: Pulse Rate WNL, Blood Pressure Stable - GASTROINTESTINAL GI Status: No Symptoms - PAIN Pain Score: 0 - POST OP HYDRATION Hydration Status: Adequate & Stable - OBSERVATIONS Free Text/Narrative:: No anesthesia problems
--- NOTE | 2019-08-27 11:42 | PCM48HPAN ---
Post Anesthesia Note - EVALUATION WITHIN 48HRS OF ANESTHETIC Vital Signs in Normal Range: Yes Patient Participated in Evaluation: Yes Respiratory Function Stable: Yes Airway Patent: Yes Cardiovascular Function Stable: Yes Hydration Status Stable: Yes Pain Control Satisfactory: Yes Nausea and Vomiting Control Satisfactory: Yes Mental Status Recovered: Yes Vital Signs: Last Vital Signs Temp 36.9 C 08/27/19 11:20 Pulse 67 08/27/19 11:20 Resp 16 08/27/19 11:20 BP 117/71 08/27/19 11:20 Pulse Ox 97 08/27/19 11:20 - COMMENTS/OBSERVATIONS Free Text/Narrative:: No anesthesia problems
== END 2019-08-27 11:40 | disposition home or self-care (01) ==
LOC: MW.SDS 09:18
PROVIDERS: ATTEND Surgery
DX: K21.9 Gastro-esophageal reflux disease without esophagitis (principal); B96.81 Helicobacter pylori [H. pylori] as the cause of diseases classified elsewhere; K29.50 Unspecified chronic gastritis without bleeding; K22.2 Esophageal obstruction; Z79.899 Other long term (current) drug therapy
CPT/HCPCS: 43239; 88305; 88312; J2001; J2250; J2704; J7120

== ENCOUNTER 2021-05-02 09:14 | Emergency (ER) | payer OTHER ==
--- NOTE | 2021-05-02 10:02 | EDM.PDOC ---
ED HPI GENERAL MEDICAL PROBLEM - General Chief Complaint: General Stated Complaint: SYMPTOMS OF COVID Time Seen by Provider: 05/02/21 09:31 - History of Present Illness INITIAL COMMENTS - FREE TEXT/NARRATIVE: 70-year-old male presents to the emergency department complaining of fevers cough chills shortness of breath body aches for 8 to 9 days in duration. He is not vaccinated to Covid. No known Covid contacts. Patient denies chest pain. Positive shortness of breath. Moderate symptoms. No exacerbating or alleviating factors body aches Pain Score (Numeric/FACES): 10 - Related Data Allergies Allergy/AdvReac Type Severity Reaction Status Date / Time No Known Allergies Allergy Verified 05/02/21 09:27 Home Meds: Home Meds Hydrocodone/Acetaminophen [Hydrocodone-Acetamin 10-325 mg] 1 tab PO ASDIRECTED PRN 12/28/16 [History] Calcium Carbonate/Vitamin D3 [Calcium 250+D] 1 tab PO DAILY 08/21/19 [History] Fish Oil/[place]-3 Fatty Acids [Fish Oil 1,000 MG] 3 tab PO DAILY 08/21/19 [History] Latanoprost/Pf [Latanoprost 0.005% Eye Drop] 1 drop EYERT BEDTIME 08/21/19 [History] Multivitamin [Multivitamins] 1 tab PO DAILY 08/21/19 [History] Vitamin B Complex 1 tab PO DAILY 08/21/19 [History] atorvaSTATin Calcium [Atorvastatin Calcium] 40 mg PO DAILY 08/21/19 [History] lisinopriL [Lisinopril] 10 mg PO DAILY 08/21/19 [History] Past Medical History HEENT History: Reports: Cataract, Glaucoma, Macular Degeneration Other HEENT History: wears glasses, macular degeneration in left eye , glaucoma in rt eye, currently on antibiotics for 10 days for ear infection Cardiovascular History: Reports: High Cholesterol, Hypertension Respiratory History: Reports: None Gastrointestinal History: Reports: Diverticulosis, GI Bleed, Helicobacter Pylori, PUD Other Gastrointestinal History: History of GI bleed, currently c/o intermittent abd pain Genitourinary History: Reports: None Musculoskeletal History: Reports: Arthritis, Back Pain, Chronic Other Musculoskeletal History: lumbar degenerative disc disease, lumbar stenosis, lumbar spondylosis Neurological History: Reports: Other (See Below) Other Neuro History: hx of Lumbar and cervical degenerative disc disease, spinal stenosis Psychiatric History: Reports: Depression, PTSD Endocrine/Metabolic History: Reports: Obesity/BMI 30+ Hematologic History: Reports: None Immunologic History: Reports: None Oncologic (Cancer) History: Reports: None Dermatologic History: Reports: None - Infectious Disease History Infectious Disease History: Reports: Measles, Mumps, Pertussis (Whooping Cough) - Past Surgical History Head Surgeries/Procedures: Reports: None HEENT Surgical History: Reports: None Cardiovascular Surgical History: Reports: None Respiratory Surgical History: Reports: None GI Surgical History: Reports: Appendectomy, Colonoscopy, EGD Male Surgical History: Reports: None Endocrine Surgical History: Reports: None Neurological Surgical History: Reports: Lumbar Spine, Spinal Fusion Musculoskeletal Surgical History: Reports: Arthroscopic Knee Oncologic Surgical History: Reports: None Dermatological Surgical History: Reports: None Social & Family History - Family History Family Medical History: No Pertinent Family History - Tobacco Use Tobacco Use Status *Q: Current Every Day Tobacco User Years of Tobacco use: 20 Packs/Tins Daily: 0.3 - Caffeine Use Caffeine Use: Reports: Coffee - Recreational Drug Use Recreational Drug Use: No ED ROS GENERAL - Review of Systems Review Of Systems: Comprehensive ROS is negative, except as noted in HPI. ED EXAM, GENERAL - Physical Exam Exam: See Below Free Text/Narrative:: CONSTITUTIONAL: well appearing in no acute distress SKIN: Warm, dry, and intact without rash HENT: Normocephalic, atraumatic, PULMONARY: Lateral wheeze. No rales or rhonchi or wheezing CARDIOVASCULAR: regular rate, No murmur, rubs, or gallops GASTROINTESTINAL: soft, nondistended, nontender NEUROLOGIC: normal speech, no gross motor or sensory deficits MUSCULOSKELETAL: no gross deformities, atraumatic PSYCHIATRIC: normal mood and affect #1 Interpretation Time: 10:30 EKG Interpretation Comments: 82, normal sinus rhythm, nonspecific ST/T findings., Mild interventricular conduction delay Course - Vital Signs Text/Narrative:: Differential diagnosis: Covid, CHF, PE, viral syndrome, other Patient presents as outlined above. Patient positive for Covid. Patient ambulatory O2 saturation 92%. He states he lives with his brother and less than 5 minutes away. Patient given the option for inpatient versus outpatient treatment. At this time he will go home and return for any change or worsening condition. Patient is going directly to receive monoclonal antibody therapy upon discharge and he was given return precautions Last Recorded V/S: Last Vital Signs Temp 36.1 C 05/02/21 12:10 Pulse 79 05/02/21 12:10 Resp 22 H 05/02/21 12:10 BP 130/71 05/02/21 12:10 Pulse Ox 91 L 05/02/21 12:10 - Orders/Labs/Meds Labs: Laboratory Tests 05/02/21 05/02/21 05/02/21 Range/Units 09:38 11:08 11:08 WBC 7.56 (4.0-11.0) K/uL RBC 4.87 (4.50-5.90) M/uL Hgb 15.8 (13.0-17.0) g/dL Hct 45.1 (38.0-50.0) % MCV 92.6 (80.0-98.0) fL MCH 32.4 H (27.0-32.0) pg MCHC 35.0 (31.0-37.0) g/dL RDW Std Deviation 45.1 (28.0-62.0) fl RDW Coeff of Marcelino 13 (11.0-15.0) % Plt Count 201 (150-400) K/uL MPV 10.60 (7.40-12.00) fL Neut % (Auto) 73.8 (48.0-80.0) % Lymph % (Auto) 14.2 L (16.0-40.0) % Victoria % (Auto) 11.9 (0.0-15.0) % Eos % (Auto) 0.0 (0.0-7.0) % Baso % (Auto) 0.1 (0.0-1.5) % Neut # (Auto) 5.6 (1.4-5.7) K/uL Lymph # (Auto) 1.1 (0.6-2.4) K/uL Victoria # (Auto) 0.9 H (0.0-0.8) K/uL Eos # (Auto) 0.0 (0.0-0.7) K/uL Baso # (Auto) 0.0 (0.0-0.1) K/uL Nucleated RBC % 0.0 /100WBC Nucleated RBCs # 0 K/uL INR Sodium (136-148) mmol/L Potassium (3.5-5.1) mmol/L Chloride (98-107) mmol/L Carbon Dioxide (21.0-32.0) mmol/L BUN (7.0-18.0) mg/dL Creatinine (0.8-1.3) mg/dL Est Cr Clr Drug Dosing mL/min Estimated GFR (MDRD) ml/min Glucose (74-106) mg/dL Lactic Acid 0.9 (0.4-2.0) mmol/L Calcium (8.5-10.1) mg/dL Ferritin (26-388) ng/mL Total Bilirubin (0.2-1.0) mg/dL AST (15-37) IU/L ALT (14-63) IU/L Alkaline Phosphatase (46-116) U/L Troponin I (0.000-0.056) ng/mL B-Natriuretic Peptide (<100) PG/ML Total Protein (6.4-8.2) g/dL Albumin (3.4-5.0) g/dL Globulin (2.6-4.0) g/dL Albumin/Globulin Ratio (0.9-1.6) SARS-CoV-2 RNA (SEVEN) POSITIVE H (NEGATIVE) 05/02/21 05/02/21 05/02/21 Range/Units 11:08 11:08 11:08 WBC (4.0-11.0) K/uL RBC (4.50-5.90) M/uL Hgb (13.0-17.0) g/dL Hct (38.0-50.0) % MCV (80.0-98.0) fL MCH (27.0-32.0) pg MCHC (31.0-37.0) g/dL RDW Std Deviation (28.0-62.0) fl RDW Coeff of Marcelino (11.0-15.0) % Plt Count (150-400) K/uL MPV (7.40-12.00) fL Neut % (Auto) (48.0-80.0) % Lymph % (Auto) (16.0-40.0) % Victoria % (Auto) (0.0-15.0) % Eos % (Auto) (0.0-7.0) % Baso % (Auto) (0.0-1.5) % Neut # (Auto) (1.4-5.7) K/uL Lymph # (Auto) (0.6-2.4) K/uL Victoria # (Auto) (0.0-0.8) K/uL Eos # (Auto) (0.0-0.7) K/uL Baso # (Auto) (0.0-0.1) K/uL Nucleated RBC % /100WBC Nucleated RBCs # K/uL INR 1.02 Sodium 133 L (136-148) mmol/L Potassium 4.3 (3.5-5.1) mmol/L Chloride 98 (98-107) mmol/L Carbon Dioxide 26.7 (21.0-32.0) mmol/L BUN 20 H (7.0-18.0) mg/dL Creatinine 1.0 (0.8-1.3) mg/dL Est Cr Clr Drug Dosing 78.78 mL/min Estimated GFR (MDRD) > 60.0 ml/min Glucose 121 H (74-106) mg/dL Lactic Acid (0.4-2.0) mmol/L Calcium 8.0 L (8.5-10.1) mg/dL Ferritin (26-388) ng/mL Total Bilirubin 0.7 (0.2-1.0) mg/dL AST 35 (15-37) IU/L ALT 38 (14-63) IU/L Alkaline Phosphatase 79 (46-116) U/L Troponin I < 0.050 (0.000-0.056) ng/mL B-Natriuretic Peptide 60 (<100) PG/ML Total Protein 7.2 (6.4-8.2) g/dL Albumin 3.1 L (3.4-5.0) g/dL Globulin 4.1 H (2.6-4.0) g/dL Albumin/Globulin Ratio 0.8 L (0.9-1.6) SARS-CoV-2 RNA (SEVEN) (NEGATIVE) 05/02/21 Range/Units 11:08 WBC (4.0-11.0) K/uL RBC (4.50-5.90) M/uL Hgb (13.0-17.0) g/dL Hct (38.0-50.0) % MCV (80.0-98.0) fL MCH (27.0-32.0) pg MCHC (31.0-37.0) g/dL RDW Std Deviation (28.0-62.0) fl RDW Coeff of Marcelino (11.0-15.0) % Plt Count (150-400) K/uL MPV (7.40-12.00) fL Neut % (Auto) (48.0-80.0) % Lymph % (Auto) (16.0-40.0) % Victoria % (Auto) (0.0-15.0) % Eos % (Auto) (0.0-7.0) % Baso % (Auto) (0.0-1.5) % Neut # (Auto) (1.4-5.7) K/uL Lymph # (Auto) (0.6-2.4) K/uL Victoria # (Auto) (0.0-0.8) K/uL Eos # (Auto) (0.0-0.7) K/uL Baso # (Auto) (0.0-0.1) K/uL Nucleated RBC % /100WBC Nucleated RBCs # K/uL INR Sodium (136-148) mmol/L Potassium (3.5-5.1) mmol/L Chloride (98-107) mmol/L Carbon Dioxide (21.0-32.0) mmol/L BUN (7.0-18.0) mg/dL Creatinine (0.8-1.3) mg/dL Est Cr Clr Drug Dosing mL/min Estimated GFR (MDRD) ml/min Glucose (74-106) mg/dL Lactic Acid (0.4-2.0) mmol/L Calcium (8.5-10.1) mg/dL Ferritin 230 (26-388) ng/mL Total Bilirubin (0.2-1.0) mg/dL AST (15-37) IU/L ALT (14-63) IU/L Alkaline Phosphatase (46-116) U/L Troponin I (0.000-0.056) ng/mL B-Natriuretic Peptide (<100) PG/ML Total Protein (6.4-8.2) g/dL Albumin (3.4-5.0) g/dL Globulin (2.6-4.0) g/dL Albumin/Globulin Ratio (0.9-1.6) SARS-CoV-2 RNA (SEVEN) (NEGATIVE) Meds: Medications Discontinued Medications Generic Name Dose Route Start Last Admin Trade Name Paola PRN Reason Stop Dose Admin Diphenhydramine HCl 50 mg 05/02/21 11:53 Diphenhydramine 50 Mg/Ml Sdv IVPUSH ONETIME PRN hypersensitivity reaction CASIRIVIMAB/IMDEVIMAB 10 ml/ 110 mls @ 220 mls/hr 05/02/21 11:53 05/02/21 12:56 Sodium Chloride IV 05/02/21 12:22 Not Given ONETIME ONE CASIRIVIMAB/IMDEVIMAB 10 ml/ 110 mls @ 220 mls/hr 05/02/21 11:55 05/02/21 12:56 Sodium Chloride IV 05/02/21 12:22 Not Given ONETIME ONE Sodium Chloride 30 ml 05/02/21 12:00 Sodium Chloride 0.9% 10 Ml Syringe FLUSH ASDIRECTED TRINITY Departure - Departure Time of Disposition: 12:38 Disposition: Home, Self-Care 01 Condition: Good Clinical Impression: Pneumonia due to COVID-19 virus - Discharge Information Instructions: COVID-19 Referrals: Lisy Montgomery DO [Primary Care Provider] - Forms: ED Department Discharge Additional Instructions: Please go directly with infusion nurses to get your Covid IV treatment (Regeneronmonoclonal antibody). You may have to return to the hospital if you have worsening symptoms or shortness of breath. Please do not hesitate to return for any increasing shortness of breath or change or worsening condition. The following information is given to patients seen in the emergency department who are being discharged to home. This information is to outline your options for follow-up care. We provide all patients seen in our emergency department with a follow-up referral. The need for follow-up, as well as the timing and circumstances, are variable depending upon the specifics of your emergency department visit. If you don't have a primary care physician on staff, we will provide you with a referral. We always advise you to contact your personal physician following an emergency department visit to inform them of the circumstance of the visit and for follow-up with them and/or the need for any referrals to a consulting specialist. The emergency department will also refer you to a specialist when appropriate. This referral assures that you have the opportunity for follow-up care with a specialist. All of these measure are taken in an effort to provide you with optimal care, which includes your follow-up. Primary care clinics in the area: [facility] - [facility] [address] [address] [facility] [address] [place] [id number] Under all circumstances we always encourage you to contact your private physician who remains a resource for coordinating your care. When calling for follow-up care, please make the office aware that this follow-up is from your recent emergency room visit. If for any reason you are refused follow-up, please contact the [facility] Emergency Department at and asked to speak to the emergency department charge nurse. Sepsis Event Note (ED) - Evaluation Sepsis Screening Result: No Definite Risk - Focused Exam Vital Signs: Vital Signs Temp Pulse Resp BP Pulse Ox 05/02/21 12:10 36.1 C 79 22 H 130/71 91 L 05/02/21 11:31 79 132/72 90 L 05/02/21 11:03 79 133/70 90 L 05/02/21 10:34 85 22 H 144/71 H 90 L 05/02/21 10:01 82 22 H 140/69 90 L 05/02/21 09:34 37.2 C 85 24 H 91 L 05/02/21 09:30 37.2 C 85 24 H 126/78 90 L
--- NOTE | 2021-05-02 10:36 | CR ---
Indication: Chest Pain Comparison: Single view chest March 09, 2019 Technique: Single AP view chest Findings: There is hyperinflation and chronic interstitial change. There are increased interstitial markings likely representing mild to moderate pulmonary edema. There is basilar atelectasis versus scar. There is no pneumothorax. The cardiac silhouette is mildly prominent. The bony thorax is grossly intact. Impression: Increased interstitial markings likely representing mild to moderate pulmonary edema. Dictated by Logan Hicks MD @ 05/02/2021 10:36:[address] Logan Hicks @ May 02 2021 10:36AM
[2021-05-02 11:53] LABS: BLOOD UREA NITROGEN,BUN 20 mg/dL (7.0-18.0); CARBON DIOXIDE,CO2 26.7 mmol/L (21.0-32.0); CHLORIDE,CL 98 mmol/L (98-107); GLUCOSE RANDOM 121 mg/dL (74-106); POTASSIUM,K 4.3 mmol/L (3.5-5.1); SODIUM,NA 133 mmol/L (136-148)
[2021-05-02] MEDS ORDERED: diphenhydrAMINE 50 MG/ML SDV IVPUSH PRN (11:53)
[2021-05-02] MEDS ORDERED: Sodium Chloride 0.9% 10 ML Syringe FLUSH SCH (12:00)
[2021-05-02 12:10] VITALS: PULSE 79
[2021-05-02 12:11] VITALS: BP 130/71
== END 2021-05-02 12:56 | disposition home or self-care (01) ==
LOC: MW.ED 09:14
DX: U07.1 COVID-19 (principal); J12.82 Pneumonia due to coronavirus disease 2019; E78.00 Pure hypercholesterolemia, unspecified; I10 Essential (primary) hypertension; E66.9 Obesity, unspecified; Z68.30 Body mass index [BMI] 30.0-30.9, adult; Z79.899 Other long term (current) drug therapy; Z72.0 Tobacco use
CPT/HCPCS: 36415; 71045; 71045-26; 80053; 82728; 83605; 83880; 84484; 85025; 85610; 93005; 99284-25; U0002

== ENCOUNTER 2022-03-01 12:01 | Emergency (ER) | payer OTHER ==
[2022-03-01 15:13] LABS: BLOOD UREA NITROGEN,BUN 21 mg/dL (7.0-18.0); CARBON DIOXIDE,CO2 27.8 mmol/L (21.0-32.0); CHLORIDE,CL 103 mmol/L (98-107); GLUCOSE RANDOM 105 mg/dL (74-106); POTASSIUM,K 4.3 mmol/L (3.5-5.1); SODIUM,NA 139 mmol/L (136-148)
[2022-03-01 15:18] LABS: ESTIMATED GFR 80 mL/min (>60)
[2022-03-01 16:29] LABS: CORONAVIRUS COVID-19 NAA NEGATIVE (NEGATIVE); INFLUENZA A NAA NEGATIVE (NEGATIVE); INFLUENZA B NAA NEGATIVE (NEGATIVE)
[2022-03-01 16:39] VITALS: BP 146/81; PULSE 60
== END 2022-03-02 10:54 | disposition home or self-care (01) ==
LOC: MW.ED 12:01
DX: J40 Bronchitis, not specified as acute or chronic (principal); J01.90 Acute sinusitis, unspecified; E78.00 Pure hypercholesterolemia, unspecified; I10 Essential (primary) hypertension; E66.9 Obesity, unspecified; Z68.30 Body mass index [BMI] 30.0-30.9, adult; Z79.899 Other long term (current) drug therapy; Z20.822 Contact with and (suspected) exposure to COVID-19
CPT/HCPCS: 0240U; 36415; 71046; 80053; 84484; 85025; 93005; 99284; 93010

== ENCOUNTER 2023-11-01 11:25 | Emergency (ER) | payer OTHER ==
[2023-11-01 13:19] VITALS: BP 146/65; PULSE 64
== END 2023-11-01 15:10 | disposition home or self-care (01) ==
LOC: MW.ED 11:25
DX: G56.01 Carpal tunnel syndrome, right upper limb (principal); I10 Essential (primary) hypertension; E78.00 Pure hypercholesterolemia, unspecified; E66.9 Obesity, unspecified; Z79.899 Other long term (current) drug therapy; Z68.29 Body mass index [BMI] 29.0-29.9, adult
CPT/HCPCS: 73130-26-RT; 73130-RT; 99282; 99283

== ENCOUNTER 2024-05-06 02:04 | Observation (INO) | payer OTHER ==
[2024-05-06 02:26] LABS: BASOPHILS ABSOLUTE AUTO 0.02 K/uL (0.00-0.20); BASOPHILS PERCENT AUTO 0.3 % (0.0-1.0); EOSINOPHILS ABSOLUTE AUTO 0.16 K/uL (0.00-0.45); EOSINOPHILS PERCENT AUTO 2.3 % (0.0-6.0); HEMOGLOBIN 12.5 g/dL (14.0-18.0); IMMATURE GRAN ABSOLUTE AUTO 0.01 K/uL (0.00-0.05); IMMATURE GRAN PERCENT AUTO 0.1 % (0.0-0.4); LYMPHOCYTES ABSOLUTE AUTO 2.44 K/uL (1.00-4.80); LYMPHOCYTES PERCENT AUTO 35.8 % (24.0-44.0); MEAN CORPUSCULAR HEMOGLOBIN 30.1 pg (28.0-32.0); MEAN CORPUSCULAR HGB CONC 32.9 g/dL (32.0-36.0); MEAN CORPUSCULAR VOLUME 91.6 fL (83.0-99.0); MEAN PLATELET VOLUME 10.2 fL (9.4-12.4); MONOCYTES ABSOLUTE AUTO 0.87 K/uL (0.00-0.80); MONOCYTES PERCENT AUTO 12.8 % (0.0-8.0); NEUTROPHILS ABSOLUTE AUTO 3.31 K/uL (1.80-7.70); NEUTROPHILS PERCENT AUTO 48.7 % (41.0-71.0); PLATELET COUNT,PLT 278 K/uL (150-400); RED BLOOD CELL COUNT 4.15 M/uL (4.52-5.90); WHITE BLOOD CELL COUNT,WBC 6.81 K/uL (3.9-11.3)
[2024-05-06] MEDS: Aspirin 81 MG Tab.Chew PO ONE (02:26)
[2024-05-06] MEDS: Sodium Chloride 0.9% 10 ML Syringe FLUSH PRN (02:27)
[2024-05-06] MEDS: Sodium Chloride 0.9% 2.5 ML Syringe FLUSH PRN (02:28)
[2024-05-06 02:38] LABS: INR 0.99 (0.86-1.11); PTT,PARTIAL THROMBOPLSTIN TIME 32.4 SEC (23.9-30.7)
[2024-05-06 02:55] LABS: A/G RATIO 0.9 (0.9-1.6); ALBUMIN 3.1 g/dL (3.4-5.0); BILIRUBIN TOTAL 0.3 mg/dL (0.2-1.0); CALCIUM 8.6 mg/dL (8.5-10.1); CARBON DIOXIDE,CO2 29.3 mmol/L (21.0-32.0); CREATININE 1.1 mg/dL (0.8-1.3); EST CRCL DRUG DOSING (CG) 70.42 mL/min; MAGNESIUM 2.1 mg/dL (1.8-2.4); PROTEIN TOTAL,TP 6.7 g/dL (6.4-8.2)
[2024-05-06] MEDS: Iopamidol 755 MG/ML 500 ML Multipack Bottle IVPUSH STA (09:04)
[2024-05-06 09:46] VITALS: BP 159/85; PULSE 57
[2024-05-06] MEDS: Gadobenate Dimeglumine 529 MG/ML 20 ML SDV IVPUSH ONE (10:17)
[2024-05-06] MEDS ORDERED: Sodium Chloride 0.9% 2.5 ML Syringe FLUSH PRN (10:48)
[2024-05-06] MEDS ORDERED: Docusate Sodium 100 MG Cap PO PRN (10:48)
[2024-05-06] MEDS ORDERED: Ondansetron 4 MG/2 ML SDV IVPUSH PRN (10:48)
[2024-05-06] MEDS ORDERED: Acetaminophen 325 MG Tab PO PRN (10:48)
[2024-05-06] MEDS ORDERED: Sodium Chloride 0.9% 10 ML Syringe FLUSH PRN (10:48)
[2024-05-06 11:08] LABS: HEMOGLOBIN A1C 5.8 %
[2024-05-06 11:19] LABS: TSH ULTRASENSITIVE 2.43 uIU/mL (0.36-3.74)
[2024-05-06] MEDS: Clopidogrel 75 MG Tab PO SCH (13:46)
[2024-05-06] MEDS: Aspirin 81 MG Tab.Chew PO SCH (13:46)
== END 2024-05-06 14:00 | disposition home or self-care (01) ==
LOC: MW.ED 02:04 → MW.MS 08:11
PROVIDERS: ADMIT Internal Medicine; ATTEND Internal Medicine
DX: G45.9 Transient cerebral ischemic attack, unspecified (principal); I10 Essential (primary) hypertension; E78.00 Pure hypercholesterolemia, unspecified; F32.A Depression, unspecified; F17.210 Nicotine dependence, cigarettes, uncomplicated; Z79.82 Long term (current) use of aspirin; Z79.899 Other long term (current) drug therapy
CPT/HCPCS: 36415; 70450; 70496; 70498; 70553; 71045; 80053; 80061; 82947; 83036; 83735; 83880; 84443; 84484; 85025; 85610; 85730; 93005; 93306; A9270; A9577; J3490; Q9967; 99285; G0378

== ENCOUNTER 2024-12-26 09:55 | Day surgery (SDC) | payer OTHER ==
[~2024-12-26 09:55] MED LIST changes: -Lidocaine 2% 5 ML SDV ONE; -Midazolam 1 MG/ML 2 ML SDV ONE; -Propofol 200 MG/20 ML SDV ONE
[2024-12-26] MEDS: Lactated Ringers 1,000 ML IV SCH (10:28)
[2024-12-26] MEDS ORDERED: Lidocaine 2% 5 ML SDV ONE (11:49)
[2024-12-26] MEDS ORDERED: Propofol 200 MG/20 ML SDV ONE (11:49)
[2024-12-26 13:33] VITALS: BP 178/79; PULSE 60
== END 2024-12-26 13:20 | disposition home or self-care (01) ==
LOC: MW.SDS 09:55
PROVIDERS: ATTEND Surgery
DX: Z12.11 Encounter for screening for malignant neoplasm of colon (principal); K57.30 Diverticulosis of large intestine without perforation or abscess without bleeding; K21.9 Gastro-esophageal reflux disease without esophagitis; E78.00 Pure hypercholesterolemia, unspecified; F32.A Depression, unspecified; F17.210 Nicotine dependence, cigarettes, uncomplicated; Z79.899 Other long term (current) drug therapy
CPT/HCPCS: 45378; J2003; J2704; J7120

== ENCOUNTER 2025-07-05 14:19 | Emergency (ER) | payer OTHER ==
[2025-07-05] MEDS ORDERED: Sodium Chloride 0.9% 2.5 ML Syringe FLUSH PRN (15:05)
[2025-07-05] MEDS ORDERED: Sodium Chloride 0.9% 10 ML Syringe FLUSH PRN (15:05)
[2025-07-05 15:10] LABS: BASOPHILS ABSOLUTE AUTO 0.02 K/uL (0.00-0.20); BASOPHILS PERCENT AUTO 0.2 % (0.0-1.0); EOSINOPHILS ABSOLUTE AUTO 0.08 K/uL (0.00-0.45); EOSINOPHILS PERCENT AUTO 0.8 % (0.0-6.0); IMMATURE GRAN ABSOLUTE AUTO 0.04 K/uL (0.00-0.05); IMMATURE GRAN PERCENT AUTO 0.4 % (0.0-0.4); LYMPHOCYTES ABSOLUTE AUTO 2.12 K/uL (1.00-4.80); LYMPHOCYTES PERCENT AUTO 20.1 % (24.0-44.0); MEAN PLATELET VOLUME 10.7 fL (9.4-12.4); MONOCYTES ABSOLUTE AUTO 0.72 K/uL (0.00-0.80); MONOCYTES PERCENT AUTO 6.8 % (0.0-8.0); NEUTROPHILS ABSOLUTE AUTO 7.55 K/uL (1.80-7.70); NEUTROPHILS PERCENT AUTO 71.7 % (41.0-71.0); NRBC ABSOLUTE 0.00 K/uL (0.00-0.02); NRBC PERCENT 0.0 /100WBC (0.0-0.2); PLATELET COUNT,PLT 278 K/uL (150-400); RED BLOOD CELL COUNT 3.76 M/uL (4.52-5.90); WHITE BLOOD CELL COUNT,WBC 10.53 K/uL (3.9-11.3)
[2025-07-05 15:18] LABS: INR 1.02 (0.86-1.11); PTT,PARTIAL THROMBOPLSTIN TIME 28.2 SEC (23.9-30.7)
[2025-07-05 15:21] LABS: A/G RATIO 0.9 (0.9-1.6); ALANINE AMINOTRANSFERASE,ALT 23.0 IU/L (14-63); ASPARTATE AMNIOTRANSFERASE,AST 17.0 IU/L (15-37); BILIRUBIN TOTAL 0.7 mg/dL (0.2-1.0); BLOOD UREA NITROGEN,BUN 33.0 mg/dL (7.0-18.0); CARBON DIOXIDE,CO2 25.4 mmol/L (21.0-32.0); CHLORIDE,CL 108.0 mmol/L (98-107); CREATININE 1.3 mg/dL (0.8-1.3); EST CRCL DRUG DOSING (CG) 57.08 mL/min; GLUCOSE RANDOM 155.0 mg/dL (74-106); POTASSIUM,K 4.4 mmol/L (3.5-5.1); PROTEIN TOTAL,TP 6.2 g/dL (6.4-8.2); SODIUM,NA 142.0 mmol/L (136-148)
[2025-07-05 15:23] LABS: ESTIMATED GFR 57.0 mL/min (>60)
[2025-07-05 15:25] LABS: LACTIC ACID 1.7 mmol/L (0.4-2.0)
[2025-07-05 16:14] LABS: GLUCOSE,URINE NEGATIVE (NEGATIVE); OCCULT BLOOD,URINE NEGATIVE (NEGATIVE)
[2025-07-05 16:21] LABS: APPEARANCE,URINE HAZY
[2025-07-05 16:22] LABS: EPITHELIAL CELLS,URINE FEW (NONE-FEW)
[2025-07-05] MEDS: Magnesium Sulfate 2 GM/50 mL 2 GM in Premix Bag 1 BAG IV ONE (16:27)
[2025-07-05 17:29] LABS: BASOPHILS ABSOLUTE AUTO 0.01 K/uL (0.00-0.20); BASOPHILS PERCENT AUTO 0.1 % (0.0-1.0); EOSINOPHILS ABSOLUTE AUTO 0.02 K/uL (0.00-0.45); EOSINOPHILS PERCENT AUTO 0.2 % (0.0-6.0); IMMATURE GRAN ABSOLUTE AUTO 0.05 K/uL (0.00-0.05); IMMATURE GRAN PERCENT AUTO 0.5 % (0.0-0.4); LYMPHOCYTES ABSOLUTE AUTO 1.74 K/uL (1.00-4.80); LYMPHOCYTES PERCENT AUTO 15.7 % (24.0-44.0); MEAN PLATELET VOLUME 10.4 fL (9.4-12.4); MONOCYTES ABSOLUTE AUTO 0.53 K/uL (0.00-0.80); MONOCYTES PERCENT AUTO 4.8 % (0.0-8.0); NEUTROPHILS ABSOLUTE AUTO 8.75 K/uL (1.80-7.70); NEUTROPHILS PERCENT AUTO 78.7 % (41.0-71.0); NRBC ABSOLUTE 0.00 K/uL (0.00-0.02); NRBC PERCENT 0.0 /100WBC (0.0-0.2); PLATELET COUNT,PLT 270 K/uL (150-400); RED BLOOD CELL COUNT 3.60 M/uL (4.52-5.90); WHITE BLOOD CELL COUNT,WBC 11.10 K/uL (3.9-11.3)
[2025-07-05] MEDS: Iopamidol 755 Mg/ML 100 ML Bottle IVPUSH ONE (17:35)
[2025-07-05] MEDS: Pantoprazole 80 MG in Sodium Chloride 0.9% 20 ML IVPUSH ONE (17:40)
[2025-07-05] MEDS: cefTRIAXone 2 GM in Water For Injection, Sterile 20 ML IVPUSH ONE (18:11)
[2025-07-05 18:18] VITALS: BP 146/87; PULSE 80
== END 2025-07-05 22:34 | disposition left against medical advice (07) ==
LOC: MW.ED 14:19
DX: K92.2 Gastrointestinal hemorrhage, unspecified (principal); I10 Essential (primary) hypertension; F17.210 Nicotine dependence, cigarettes, uncomplicated; Z86.73 Personal history of transient ischemic attack (TIA), and cerebral infarction without residual deficits; Z90.49 Acquired absence of other specified parts of digestive tract; Z79.899 Other long term (current) drug therapy
CPT/HCPCS: 36415; 74177; 74177-26; 80053; 81001; 83605; 83735; 85025; 85610; 85730; 86850; 86900; 86901; 96365; 96375; 99284; 99285-25; A4216; J0696; J2470; J3475; Q9967

== ENCOUNTER 2025-07-06 13:35 | Emergency (ER) | payer OTHER ==
[2025-07-06 13:41] VITALS: BP 137/71
[2025-07-06] MEDS ORDERED: Sodium Chloride 0.9% 10 ML Syringe FLUSH PRN (15:23)
[2025-07-06] MEDS ORDERED: Sodium Chloride 0.9% 2.5 ML Syringe FLUSH PRN (15:23)
[2025-07-06 15:34] LABS: BASOPHILS ABSOLUTE AUTO 0.03 K/uL (0.00-0.20); BASOPHILS PERCENT AUTO 0.3 % (0.0-1.0); EOSINOPHILS ABSOLUTE AUTO 0.05 K/uL (0.00-0.45); EOSINOPHILS PERCENT AUTO 0.5 % (0.0-6.0); IMMATURE GRAN ABSOLUTE AUTO 0.03 K/uL (0.00-0.05); IMMATURE GRAN PERCENT AUTO 0.3 % (0.0-0.4); LYMPHOCYTES ABSOLUTE AUTO 2.27 K/uL (1.00-4.80); LYMPHOCYTES PERCENT AUTO 24.3 % (24.0-44.0); MEAN PLATELET VOLUME 11.5 fL (9.4-12.4); MONOCYTES ABSOLUTE AUTO 0.73 K/uL (0.00-0.80); MONOCYTES PERCENT AUTO 7.8 % (0.0-8.0); NEUTROPHILS ABSOLUTE AUTO 6.25 K/uL (1.80-7.70); NEUTROPHILS PERCENT AUTO 66.8 % (41.0-71.0); NRBC ABSOLUTE 0.00 K/uL (0.00-0.02); NRBC PERCENT 0.0 /100WBC (0.0-0.2); PLATELET COUNT,PLT 297 K/uL (150-400); RED BLOOD CELL COUNT 3.23 M/uL (4.52-5.90); WHITE BLOOD CELL COUNT,WBC 9.36 K/uL (3.9-11.3)
[2025-07-06 15:45] LABS: A/G RATIO 1.0 (0.9-1.6); ALANINE AMINOTRANSFERASE,ALT 22 IU/L (14-63); ASPARTATE AMNIOTRANSFERASE,AST 15 IU/L (15-37); BILIRUBIN TOTAL 0.4 mg/dL (0.2-1.0); BLOOD UREA NITROGEN,BUN 47 mg/dL (7.0-18.0); CARBON DIOXIDE,CO2 28.5 mmol/L (21.0-32.0); CHLORIDE,CL 107 mmol/L (98-107); CREATININE 1.2 mg/dL (0.8-1.3); GLUCOSE RANDOM 167 mg/dL (74-106); POTASSIUM,K 4.7 mmol/L (3.5-5.1); PROTEIN TOTAL,TP 6.2 g/dL (6.4-8.2); SODIUM,NA 142 mmol/L (136-148)
[2025-07-06 15:49] LABS: ESTIMATED GFR 63 mL/min (>60)
[2025-07-06 15:54] LABS: INR 1.03 (0.86-1.11); PTT,PARTIAL THROMBOPLSTIN TIME 29.6 SEC (23.9-30.7)
[2025-07-06 17:37] VITALS: PULSE 88
== END 2025-07-06 17:36 | disposition home or self-care (01) ==
LOC: MW.ED 13:35
DX: K92.1 Melena (principal); E78.00 Pure hypercholesterolemia, unspecified; F17.200 Nicotine dependence, unspecified, uncomplicated; Z79.899 Other long term (current) drug therapy
CPT/HCPCS: 36415; 80053; 83735; 85025; 85610; 85730; 86850; 86900; 86901; 99283; 99284

== ENCOUNTER 2025-07-21 08:51 | Day surgery (SDC) | payer OTHER ==
[~2025-07-21 08:51] MED LIST changes: -Lactated Ringers 1,000 ML IV SCH; +Sodium Chloride 0.9% 10 ML Syringe FLUSH PRN; +Sodium Chloride 0.9% 2.5 ML Syringe FLUSH PRN; +propofoL 500 MG/50 ML 50 ML ONE
[2025-07-21] MEDS: Lactated Ringers 1,000 ML IV SCH (09:22)
[2025-07-21] MEDS ORDERED: Propofol 200 MG/20 ML SDV ONE (10:53)
[2025-07-21 12:28] VITALS: BP 150/70; PULSE 59
== END 2025-07-21 11:59 | disposition home or self-care (01) ==
LOC: MW.SDS 08:51
PROVIDERS: ATTEND Surgery
DX: K57.30 Diverticulosis of large intestine without perforation or abscess without bleeding (principal); K29.50 Unspecified chronic gastritis without bleeding; K20.90 Esophagitis, unspecified without bleeding; K22.2 Esophageal obstruction; K44.9 Diaphragmatic hernia without obstruction or gangrene; Q27.33 Arteriovenous malformation of digestive system vessel; E78.00 Pure hypercholesterolemia, unspecified; I10 Essential (primary) hypertension; Z88.8 Allergy status to other drugs, medicaments and biological substances; Z79.899 Other long term (current) drug therapy
CPT/HCPCS: 43239; 45378; 88305; 88342; J2704; J7120; 00813; 99100